=== PATIENT | male | born 1975 | race Caucasian/White ===

== ENCOUNTER 2018-05-11 22:38 | Emergency (ER) | payer OTHER ==
[~2018-05-11] VITALS: Ht 172.7 cm; Wt 70.3 kg
[~2018-05-11 22:38] MED LIST: SERT25TA PO
[2018-05-11 23:30] VITALS: BP 155/86
[2018-05-12] MEDS ORDERED: fentaNYL PF VIAL 100 MCG/2 ML VIAL IV ONE
[2018-05-12] MEDS ORDERED: ONDANSETRON PF 4 MG/2 ML VIAL. IV ONE
[2018-05-12] MEDS ORDERED: LIDOCAINE 1% PF 30 ML VIAL. INJ ONE
[2018-05-12] MEDS ORDERED: CLINDAMYCIN 600MG PREMIX 50 ML IV ONE (00:15)
[2018-05-12] MEDS ORDERED: MORPHINE SULFATE 4 MG/ML VIAL. ONE (00:40)
[2018-05-12] MEDS ORDERED: MORPHINE SULFATE 4 MG/ML VIAL. IV ONE ×2 (01:15→01:45)
[2018-05-12] MEDS ORDERED: CLIN300C8 PO (01:39)
[2018-05-12] MEDS ORDERED: OXYC-327 PO (01:39)
--- NOTE | 2018-05-12 06:22 | PHYS DOC ---
Past Medical History Past Medical History: Abscess, MRSA Additional Past Medical Histor: ASTHMA; substance abuse Past Surgical History: No Surgical History Alcohol Use: Occasionally Drug Use: Benzodiazepine Adult General Chief Complaint Chief Complaint: ABDOMINAL PAIN HPI HPI Patient is a 42 year old male who presents with abdominal abscess. The patient states he has a prior history of abscesses which have required incision and drainage. Today, he presents to the ER with swelling and pain about the mid abdomen just left of the umbilicus. He has had symptoms over the last 2 days. No fevers or chills. He primarily complains of pain.. Review of Systems Review of Systems Constitutional: Denies fever Eyes: Denies change in visual acuity HENT: Denies nasal congestion Respiratory: Denies cough Cardiovascular: No additional information not addressed in HPI GI: Denies abdominal pain Musculoskeletal: Denies back pain Integument: Denies rash Neurologic: Denies headache Endocrine: Denies polyuria All other systems were reviewed and found to be within normal limits, except as documented in this note. Current Medications Current Medications Current Medications Medications (Trade) Dose Ordered Sig/Abdiaizz Start Time Stop Time Status Last Admin Dose Admin Clindamycin Phosphate 50 ml @ 100 mls/hr 1X ONCE 05/12/18 00:15 05/12/18 00:44 DC 05/12/18 00:15 100 MLS/HR Fentanyl Citrate (Fentanyl 2ml Vial) 75 mcg 1X ONCE 05/12/18 00:00 05/12/18 00:01 DC 05/12/18 00:27 75 MCG Lidocaine HCl (Xylocaine 1% Pf 30ml Vial) 30 ml 1X ONCE 05/12/18 00:00 05/12/18 00:01 DC 05/12/18 00:26 30 ML Morphine Sulfate (Morphine Sulfate) 4 mg 1X ONCE 05/12/18 01:45 05/12/18 01:46 DC Ondansetron HCl (Zofran) 4 mg 1X ONCE 05/12/18 00:00 05/12/18 00:01 DC 05/12/18 00:27 4 MG Allergies Allergies Allergies Coded Allergies Type Severity Reaction Last Updated Verified No Known Drug Allergies 08/19/14 No Physical Exam Physical Exam Constitutional: Well developed, well nourished, no acute distress, non-toxic appearance HENT: Normocephalic, atraumatic Eyes: PERRLA, EOMI, conjunctiva normal Neck: Normal range of motion, no tenderness Cardiovascular:Heart rate regular rhythm, no murmur Lungs & Thorax: Bilateral breath sounds clear to auscultation Abdomen: Just left and lateral to the umbilicus is an area approximately 4 x 5 cm of induration and fluctuance with some overlying cellulitis. Patient also has an umbilical hernia which is protruding but easily reduces without difficulty and is not painful. Skin: Warm, dry, no erythema, no rash Neurologic: Alert and oriented X 3 Psychologic: Affect normal Current Patient Data Vital Signs Vital Signs Date Time Temp Pulse Resp B/P (MAP) Pulse Ox O2 Delivery O2 Flow Rate FiO2 05/11/18 23:30 98.4 77 18 155/86 (109) 99 Room Air 98.4 EKG EKG [] Radiology/Procedures Radiology/Procedures [] Course & Med Decision Making Course & Med Decision Making Pertinent Labs and Imaging studies reviewed. (See chart for details) Patient was evaluated for an abscess over the abdominal wall. Bedside ultrasound was completed and revealing for 2.5 x 1.5 cm abscess that was about 1.5-2 cm deep to the skin. Incision and drainage was performed as documented below. The patient tolerated well. He was given a dose of IV clindamycin in the ER and was discharged home on the same. Patient was instructed to return to the ER in 48 hours to have the wound recheck and packing removed and replaced. He was provided a prescription for [place] for pain. Opiate precautions were discussed and the patient verbalizes understanding. He is not opiate rito. Patient is accompanied by his this evening who is driving him home. Procedure note: Incision and drainage of abscess over anterior abdominal wall. The area was prepped and cleaned with iodine. A 1.5-2 cm incision was made to the skin using a #10 blade scalpel. Blunt dissection was used with iris scissors until pocket of purulent fluid was accessed. The wound was marsupialized. There was copious amount of purulent material returned. The wound was then irrigated with 500 mils of normal saline. The wound was packed with 1 inch plain packing gauze. A dressing was then placed with 4 x 4's. Dragon Disclaimer Dragon Disclaimer This electronic medical record was generated, in whole or in part, using a voice recognition dictation system. Departure Departure Impression: Primary Impression: Abscess, abdomen Disposition: HOME, SELF-CARE Condition: GOOD Patient Instructions: Abscess, Care After Scripts Oxycodone/Apap 7.5-325 (PERCOCET 7.5-325 MG TABLET) 1 Each Tablet 1-2 TAB PO TID PRN for PAIN, #30 TAB Prov: KIAN SIMPSON DO 05/12/18 Clindamycin Hcl (CLINDAMYCIN HCL) 300 Mg Capsule 300 MG PO QID, #40 CAP Prov: KIAN SIMPSON DO 05/12/18 KIAN SIMPSON DO May 12, 2018 06:22
== END 2018-05-12 02:07 | disposition home or self-care (01) ==
LOC: ER 22:38
DX: L02.211 Cutaneous abscess of abdominal wall (principal); J45.909 Unspecified asthma, uncomplicated; Z86.14 Personal history of Methicillin resistant Staphylococcus aureus infection
CPT/HCPCS: 10060; 87071; 87075; 96365; 96375; 99285; J2270; J2405; J3010; J3490

== ENCOUNTER 2018-05-14 00:42 | Emergency (ER) | payer OTHER ==
[~2018-05-14] VITALS: Ht 182.9 cm; Wt 79.4 kg
[~2018-05-14 00:42] MED LIST changes: +CLIN300C8 PO; +OXYC-327 PO
[2018-05-14 00:55] VITALS: BP 150/90
[2018-05-14] MEDS ORDERED: MUPI15CR TP (01:39)
--- NOTE | 2018-05-14 01:39 | PHYS DOC ---
Past Medical History Past Medical History: Abscess, MRSA Additional Past Medical Histor: ASTHMA; substance abuse Past Surgical History: No Surgical History Smoking: Less than 1pk/day Alcohol Use: Occasionally Drug Use: Benzodiazepine Adult General Chief Complaint Chief Complaint: WOUND CHECK HPI HPI Patient is a 42 year old male who presents for evaluation of his wound. 2 days ago he had an abdominal abscess incision and drainage. The wound was packed. Patient states he was changing his dressing when he unintentionally pulled out the packing, which was stuck to the gauze and pus and blood came out. Patient states was going to come in the morning to remove the packing anyway. He notes that he has a constant throbbing pain in the area since pulling out the packing and rates his pain as an 8-9/10. He denies any significant drainage from the wound. Review of Systems Review of Systems Constitutional: Denies fever or chills Eyes: Denies change in visual acuity, redness, or eye pain HENT: Denies nasal congestion or sore throat Respiratory: Denies cough or shortness of breath Cardiovascular: Denies chest pain or heart palpitations GI: Notes abdominal abscess pain; Denies nausea, vomiting, diarrhea, constipation : Denies dysuria or hematuria Musculoskeletal: Denies back pain or joint pain Integument: Denies rash or skin lesions Neurologic: Denies headache, focal weakness or sensory changes Complete systems were reviewed and found to be within normal limits, except as documented in this note. Family History Family History Noncontributory Current Medications Current Medications Current Medications Medications (Trade) Dose Ordered Sig/Abdiaziz Start Time Stop Time Status Last Admin Dose Admin Mupirocin (Bactroban) 1 yandy 1X ONCE 05/14/18 01:45 05/14/18 01:46 DC Oxycodone/ Acetaminophen (Percocet 5/325) 1 tab 1X ONCE 05/14/18 01:45 05/14/18 01:46 DC Gabapentin Allergies Allergies Allergies Coded Allergies Type Severity Reaction Last Updated Verified No Known Drug Allergies 08/19/14 No Physical Exam Physical Exam Constitutional: Well developed, well nourished, no acute distress, non-toxic appearance HENT: Normocephalic, atraumatic, oropharynx moist Eyes: Conjunctiva normal, no discharge Neck: Normal range of motion, no tenderness, supple Cardiovascular: Heart rate regular rhythm, no murmur Lungs & Thorax: Bilateral breath sounds clear to auscultation Abdomen: Soft, open linear abdominal wound about 6cm, healing well Skin: Warm, dry, no erythema, no rash Back: No tenderness, no CVA tenderness Extremities: No tenderness, ROM intact, no edema Neurologic: Alert and oriented X 3, normal motor function, normal sensory function, no focal deficits noted Psychologic: Affect normal, judgement normal, mood normal Current Patient Data Vital Signs Vital Signs Date Time Temp Pulse Resp B/P (MAP) Pulse Ox O2 Delivery O2 Flow Rate FiO2 05/14/18 00:55 98.1 88 20 150/90 (110) 97 Room Air 98.1 EKG EKG [] Radiology/Procedures Radiology/Procedures [] Course & Med Decision Making Course & Med Decision Making Patient is a 42 year old male who presents for evaluation of his wound. He states he unintentionally took the packing out of the wound earlier today. The packing was supposed to come out tomorrow. The wound appears to be healing well. Wound care was administered. Patient was given a one-time dose of oxycodone/APAP 5/325. Patient was provided with a prescription for mupirocin, as well as a Ventolin inhaler to his asthma symptoms. Patient stable for discharge with outpatient follow-up with PCP. Discussed findings and plan with patient and family, who acknowledge understanding and agreement. Dragon Disclaimer Dragon Disclaimer This electronic medical record was generated, in whole or in part, using a voice recognition dictation system. Departure Departure Impression: Primary Impression: Wound check, abscess Disposition: 01 HOME, SELF-CARE Condition: STABLE Referrals: ANN RIBEIRO MD (PCP) Patient Instructions: Wound Care, [id number] Scripts Albuterol Sulfate (VENTOLIN HFA INHALER) 18 Gm Hfa.aer.ad 2 PUFF INH Q4HRS for FOR ASTHMA, #1 INHALER 0 Refills Prov: RADHA SAWANT DO 05/14/18 Mupirocin Calcium (BACTROBAN CREAM) 15 Gm Cream..g. 1 YANDY TP TID, #1 EACH Prov: RADHA SAWANT DO 05/14/18 RADHA SAWANT DO May 14, 2018 01:39
[2018-05-14] MEDS ORDERED: oxyCODONE/APAP 5/325 1 TAB TABLET PO ONE (01:45)
[2018-05-14] MEDS ORDERED: MUPIROCIN 2 % TOPICAL CREAM 15GM TUBE. TP ONE (01:45)
[2018-05-14] MEDS ORDERED: VENTOLIN HFA18 GM INH (01:59)
== END 2018-05-14 02:06 | disposition home or self-care (01) ==
LOC: ER 00:42
DX: Z48.00 Encounter for change or removal of nonsurgical wound dressing (principal); R10.9 Unspecified abdominal pain; J45.909 Unspecified asthma, uncomplicated; F17.200 Nicotine dependence, unspecified, uncomplicated
CPT/HCPCS: 99283

== ENCOUNTER 2018-10-12 08:43 | Inpatient (IN) | payer OTHER ==
[~2018-10-12] VITALS: Ht 182.9 cm; Wt 83.6 kg
[~2018-10-12 08:43] MED LIST changes: +MUPI15CR TP; -OXYC-327 PO; +OXYC1TAB19 PO; +VENTOLIN HFA18 GM INH
[2018-10-12] MEDS ORDERED: HALOPERIDOL LACTATE 5 MG/ML VIAL. IM ONE (09:00)
--- NOTE | 2018-10-12 09:28 | PHYS DOC ---
Past Medical History Past Medical History: Abscess, MRSA Additional Past Medical Histor: ASTHMA; substance abuse Past Surgical History: No Surgical History Alcohol Use: Occasionally Drug Use: Benzodiazepine Adult General Chief Complaint Chief Complaint: ALTERED MENTAL STATUS HPI HPI Patient is a 43 year old male brought in by ambulance with altered mental status apparently he has a long history of methamphetamine use he said his last use was 3 days ago and "it is killing me from the inside". Apparently he was tweaking outside somebody's house and as such 911 was called blood sugar was within normal limits according to the paramedics Review of Systems Review of Systems Otherwise negative except as noted in history of present illness patient denies chest pain or shortness of breath he is noting a rash. Current Medications Current Medications Current Medications Medications (Trade) Dose Ordered Sig/Abdiaziz Start Time Stop Time Status Last Admin Dose Admin Haloperidol Lactate (Haldol Inj) 5 mg 1X ONCE 10/12/18 09:00 10/12/18 09:01 DC 10/12/18 10:35 5 MG Lorazepam (Ativan) 2 mg 1X ONCE 10/12/18 10:15 10/12/18 10:16 DC 10/12/18 10:35 2 MG Olanzapine (ZyPREXA ZYDIS) 10 mg 1X ONCE 10/12/18 09:45 10/12/18 09:46 DC 10/12/18 10:36 10 MG Sodium Chloride 1,000 ml @ 1,000 mls/hr 1X ONCE 10/12/18 15:00 10/12/18 15:59 DC 10/12/18 15:00 1,000 MLS/HR Allergies Allergies Allergies Coded Allergies Type Severity Reaction Last Updated Verified No Known Drug Allergies 08/19/14 No Physical Exam Physical Exam Constitutional: Well developed,agitated diaphoretic HENT: Normocephalic, atraumatic, bilateral external ears normal, oropharynx DRY PT IS GRINDING TEETHt, no oral exudates, nose normal. [] Eyes: Dilated pupils, conjunctiva normal, no discharge. [] Neck: Normal range of motion, no tenderness, supple, no stridor. [] Cardiovascular: Tachycardia noted. Lungs & Thorax: Bilateral breath sounds clear to auscultation [] Abdomen: Bowel sounds normal, soft, no tenderness, no masses, no pulsatile masses. [] Skin: There is a rash noted on the body some scattered areas that look like healed skin popping lesions as well as scattered excoriations Extremities: No tenderness, no cyanosis, no clubbing, ROM intact, no edema. [] Neurologic: Alert and oriented X 3, normal motor function, normal sensory function, no focal deficits noted. Psychologic: Patient appears very agitated psychomotor agitation he is pacing around the room he is speaking very fast with pressured speech he is redirectable however he is oriented 3 he even knows that it is 9 10 in the morning exactly Current Patient Data Vital Signs Vital Signs Date Time Temp Pulse Resp B/P (MAP) Pulse Ox O2 Delivery O2 Flow Rate FiO2 10/12/18 14:15 99 20 97 10/12/18 09:47 99.3 109/86 (94) Room Air 99.3 Lab Values Laboratory Tests Test 10/12/18 14:00 Urine Collection Type Unknown Urine Color Yellow Urine Clarity Clear Urine pH 5.0 Urine Specific [place] 1.015 Urine Protein Negative mg/dL (NEG-TRACE) Urine Glucose (UA) Negative mg/dL (NEG) Urine Ketones (Stick) 15 mg/dL (NEG) Urine Blood Negative (NEG) Urine Nitrite Negative (NEG) Urine Bilirubin Negative (NEG) Urine Urobilinogen Dipstick 0.2 mg/dL (0.2 mg/dL) Urine Leukocyte Esterase Negative (NEG) Urine RBC 0 /HPF (0-2) Urine WBC Occ /HPF (0-4) Urine Squamous Epithelial Cells None /LPF Urine Bacteria 0 /HPF (0-FEW) Urine Mucus Mod /LPF Urine Opiates Screen Neg (NEG) Urine Methadone Screen Neg (NEG) Urine Barbiturates Neg (NEG) Urine Phencyclidine Screen Neg (NEG) Urine Amphetamine/Methamphetamine Pos (NEG) Urine Benzodiazepines Screen Neg (NEG) Urine Cocaine Screen Pos (NEG) Urine Cannabinoids Screen Neg (NEG) Urine Ethyl Alcohol Neg (NEG) EKG EKG [] Radiology/Procedures Radiology/Procedures [] Course & Med Decision Making Course & Med Decision Making Critical care time was 40 minutes exclusive of procedures.Pertinent Labs and Imaging studies reviewed. (See chart for details) for mgmt of acute altered mental sttus from drug induced agitation ativan haldol ativan zydis required brief secuirty hold to get IM medication but did not require full restraints he was mostly verbally redirectable. reassessment 1005 am, still psychomotor agitation. Reassessment 12 PM patient is sleeping reassessment 1 PM patient gets up to the bathroom with significant assistance from staff. Reassessment at 3 PM patient is still really resistant to waking up and following commands he still has psychomotor agitation with minimal tactile stimulation given the fact that he is very slow to clear his mental status unfortunately this patient does warrant admission for hydration will do some lab work in the emergency room L speak with Dr. anastasiia porter hospitalist admit. NOTED RHABDO, PT IS HYDRATED IN THE EMERGENCY ROOM. CREATININE NORMAL. [] Dragon Disclaimer Dragon Disclaimer This electronic medical record was generated, in whole or in part, using a voice recognition dictation system. Departure Departure Impression: Primary Impression: Substance abuse Additional Impression: Elevated CK Disposition: ADMITTED INPATIENT Admitting Physician: Other Condition: STABLE Referrals: ANN RIBEIRO MD (PCP) Patient Instructions: Drug Abuse, FAQs Problem Qualifiers CONI BALDWIN MD Oct 12, 2018 09:28
[2018-10-12] MEDS ORDERED: IV NORMAL SALINE 1000ML BAG 1,000 ML IV ONE ×2 (15:00→17:15)
[2018-10-12 15:24] LABS: BASO # 0.2 x10^3/uL (0.0-0.2); BASO % 1 % (0-3); EOS # 0.1 x10^3/uL (0.0-0.7); EOS % 1 % (0-3); HEMATOCRIT 35.8 % (39.0-53.0); HEMOGLOBIN 12.4 g/dL (13.0-17.5); LYMPH % 17 % (24-48); MEAN CORPUSCULAR HEMOGLOBIN 31 pg (25-35); MEAN CORPUSCULAR HGB CONC 35 g/dL (31-37); MEAN CORPUSCULAR VOLUME 90 fL (79-100); MONO # 1.3 x10^3/uL (0.0-1.1); MONO % 11 % (0-9); NEUT # 8.2 x10^3uL (1.8-7.7); NEUT % 70 % (31-73); PLATELET COUNT 371 x10^3/uL (140-400); RED CELL DISTRIBUTION WIDTH 13.7 % (11.5-14.5); WHITE BLOOD COUNT 11.8 x10^3/uL (4.0-11.0)
[2018-10-12 15:26] LABS: BILIRUBIN,URINE NEGATIVE (NEG); CLARITY,URINE CLEAR; COLOR,URINE YELLOW; NITRITE,URINE NEGATIVE (NEG); PROTEIN,URINE NEGATIVE (NEG-TRACE); UROBILINOGEN,URINE 0.2 mg/dL (0.2 mg/dL)
[2018-10-12 15:33] LABS: BARBITURATES NEG (NEG); BENZODIAZEPINES NEG (NEG); CANNABINOIDS NEG (NEG); COCAINE POS (NEG); METHADONE NEG (NEG); OPIATES NEG (NEG); PHENCYCLIDINE NEG (NEG)
[2018-10-12 15:34] LABS: AMPHETAMINE/METHAMPHETAMINE POS (NEG)
[2018-10-12 15:35] LABS: CREATININE 1.2 mg/dL (0.7-1.3); GFR 66.4
[2018-10-12 15:40] LABS: BACTERIA,URINE 0 /HPF (0-FEW); RBC,URINE 0 /HPF (0-2); WBC,URINE OCC /HPF (0-4)
[2018-10-12 15:51] LABS: ALBUMIN 3.9 g/dL (3.4-5.0); ALBUMIN/GLOBULIN RATIO 1.1 (1.0-1.7); MAGNESIUM 2.1 mg/dL (1.8-2.4); TOTAL PROTEIN 7.3 g/dL (6.4-8.2)
[2018-10-12] MEDS ORDERED: IV RINGERS,LACTATED 1000ML 1,000 ML IV SCH (16:05)
[2018-10-12] MEDS ORDERED: IV NORMAL SALINE 1000ML BAG 1,000 ML IV SCH (16:08)
[2018-10-12] MEDS ORDERED: IBUPROFEN 400 MG TABLET. PO PRN (16:15)
[2018-10-12] MEDS ORDERED: ONDANSETRON PF 4 MG/2 ML VIAL. IV PRN (16:15)
[2018-10-12] MEDS ORDERED: ELECTROLYTE (NON-ICU) PROTOCOL MC PRN (16:15)
[2018-10-12] MEDS ORDERED: ACETAMINOPHEN 325 MG TABLET. PO PRN (16:15)
[2018-10-12] MEDS ORDERED: LACTULOSE 20 GM/30 ML SOLUTION. PO PRN (16:15)
[2018-10-12] MEDS ORDERED: PROCHLORPERAZINE 10 MG/2 ML VIAL. IV PRN (16:15)
[2018-10-12] MEDS ORDERED: ZOLPIDEM 5 MG TABLET. PO PRN (16:15)
[2018-10-12] MEDS ORDERED: oxyCODONE/APAP 7.5/325 1 TAB TABLET PO PRN (16:15)
[2018-10-12] MEDS ORDERED: CLINDAMYCIN HCL 300 MG PO SCH (17:00)
--- NOTE | 2018-10-12 17:17 | PDOC1 ---
History and Physical Date of Admission Date of Admission 10/12/2018 Identification/Chief Complaint Chief Complaint brought by EMS Source Source: Chart review, Unable to obtain due to (patient sedated) History of Present Illness History of Present Illness Patient is a 43-year-old gentleman that was brought by EMS after being noticed to be experiencing withdrawal symptoms apparently. The patient at the time of my evaluation is quite sedated since he required several agents in order to calm him down. Despite all the efforts in the emergency department patient was unable to be dismissed home due to the excessive somnolence as a result of trying to stay stable ice is acute agitated state. Lungs are clear to auscultation he does not seem to be in any discomfort at the present time he just moans when addressed he's moving all extremities no signs of trauma evident. History from ER physician as follows Patient is a 43 year old male brought in by ambulance with altered mental status apparently he has a long history of methamphetamine use he said his last use was 3 days ago and "it is killing me from the inside". Apparently he was tweaking outside somebody's house and as such 911 was called blood sugar was within normal limits according to the paramedics Past Medical History Cardiovascular: No pertinent hx Past Surgical History Past Surgical History: No pertinent history Family History Family History: No Significant Current Problem List Problem List Problems Medical Problems: (1) Substance abuse Status: Acute Current Medications Current Medications Current Medications Medications (Trade) Dose Ordered Sig/Abdiaziz Start Time Stop Time Status Last Admin Dose Admin Acetaminophen (Tylenol) 650 mg PRN Q6HRS PRN 10/12/18 16:15 Albuterol Sulfate (Ventolin Neb Soln) 2.5 mg Q4HRS 10/12/18 20:00 Haloperidol Lactate (Haldol Inj) 5 mg 1X ONCE 10/12/18 09:00 10/12/18 09:01 DC 10/12/18 10:35 5 MG Ibuprofen (Motrin) 400 mg PRN Q6HRS PRN 10/12/18 16:15 Info (Non-Icu Electrolyte Protocol) 1 ea PRN DAILY PRN 10/12/18 16:15 Ketorolac Tromethamine (Toradol 30mg Vial) 30 mg PRN Q6HRS PRN 10/12/18 16:15 10/17/18 16:14 Lactulose (Lactulose) 20 gm PRN Q12HR PRN 10/12/18 16:15 Lorazepam (Ativan) 2 mg 1X ONCE 10/12/18 10:15 10/12/18 10:16 DC 10/12/18 10:35 2 MG Mupirocin (Bactroban) 1 yandy TID 10/12/18 21:00 Non-Formulary Medication (Albuterol Sulfate (Ventolin Hfa Inhaler)) 2 puff Q4HRS 10/12/18 20:00 UNV Non-Formulary Medication (Clindamycin Hcl ) 300 mg QID 10/12/18 17:00 UNV Olanzapine (ZyPREXA ZYDIS) 10 mg 1X ONCE 10/12/18 09:45 10/12/18 09:46 DC 10/12/18 10:36 10 MG Ondansetron HCl (Zofran) 4 mg PRN Q6HRS PRN 10/12/18 16:15 Oxycodone/ Acetaminophen (Percocet 7.5/ 325) 1 tab PRN TID PRN 10/12/18 16:15 Prochlorperazine Edisylate (Compazine) 10 mg PRN Q6HRS PRN 10/12/18 16:15 Ringer's Solution 1,000 ml @ 100 mls/hr Q10H 10/12/18 16:05 10/13/18 02:04 Senna/Docusate Sodium (Senna Plus) 1 tab BID 10/12/18 21:00 Sertraline HCl (Zoloft) 25 mg DAILY 10/13/18 09:00 Sodium Chloride 1,000 ml @ 125 mls/hr Q8H 10/12/18 16:08 10/13/18 16:07 Zolpidem Tartrate (Ambien) 5 mg PRN QHS PRN 10/12/18 16:15 Allergies Allergies Allergies Coded Allergies Type Severity Reaction Last Updated Verified No Known Drug Allergies 08/19/14 No ROS Review of System Unable to assess secondary to sedation Physical Exam Physical Exam GEN.: No apparent distress. Alert and oriented. HEENT: Head is normocephalic, atraumatic NECK: Supple. LUNGS: Clear to auscultation. HEART: RRR, S1, S2 present. Peripheral pulses intact ABDOMEN: Soft, nontender. Positive bowel sounds. EXTREMITIES: Without any cyanosis. NEUROLOGIC: Unable to assess PSYCHIATRIC: Unable to assess SKIN: No ulcerations Vitals Vitals Vital Signs Date Time Temp Pulse Resp B/P (MAP) Pulse Ox O2 Delivery O2 Flow Rate FiO2 10/12/18 14:15 99 20 97 10/12/18 09:47 99.3 109/86 (94) Room Air 99.3 Labs Labs Laboratory Tests Test 10/12/18 14:00 10/12/18 15:20 Urine Collection Type Unknown Urine Color Yellow Urine Clarity Clear Urine pH 5.0 Urine Specific [place] 1.015 Urine Protein Negative mg/dL (NEG-TRACE) Urine Glucose (UA) Negative mg/dL (NEG) Urine Ketones (Stick) 15 mg/dL (NEG) Urine Blood Negative (NEG) Urine Nitrite Negative (NEG) Urine Bilirubin Negative (NEG) Urine Urobilinogen Dipstick 0.2 mg/dL (0.2 mg/dL) Urine Leukocyte Esterase Negative (NEG) Urine RBC 0 /HPF (0-2) Urine WBC Occ /HPF (0-4) Urine Squamous Epithelial Cells None /LPF Urine Bacteria 0 /HPF (0-FEW) Urine Mucus Mod /LPF Urine Opiates Screen Neg (NEG) Urine Methadone Screen Neg (NEG) Urine Barbiturates Neg (NEG) Urine Phencyclidine Screen Neg (NEG) Urine Amphetamine/Methamphetamine Pos (NEG) Urine Benzodiazepines Screen Neg (NEG) Urine Cocaine Screen Pos (NEG) Urine Cannabinoids Screen Neg (NEG) Urine Ethyl Alcohol Neg (NEG) White Blood Count 11.8 x10^3/uL (4.0-11.0) Red Blood Count 4.00 x10^6/uL (4.30-5.70) Hemoglobin 12.4 g/dL (13.0-17.5) Hematocrit 35.8 % (39.0-53.0) Mean Corpuscular Volume 90 fL (79-100) Mean Corpuscular Hemoglobin 31 pg (25-35) Mean Corpuscular Hemoglobin Concent 35 g/dL (31-37) Red Cell Distribution Width 13.7 % (11.5-14.5) Platelet Count 371 x10^3/uL (140-400) Neutrophils (%) (Auto) 70 % (31-73) Lymphocytes (%) (Auto) 17 % (24-48) Monocytes (%) (Auto) 11 % (0-9) Eosinophils (%) (Auto) 1 % (0-3) Basophils (%) (Auto) 1 % (0-3) Neutrophils # (Auto) 8.2 x10^3uL (1.8-7.7) Lymphocytes # (Auto) 2.0 x10^3/uL (1.0-4.8) Monocytes # (Auto) 1.3 x10^3/uL (0.0-1.1) Eosinophils # (Auto) 0.1 x10^3/uL (0.0-0.7) Basophils # (Auto) 0.2 x10^3/uL (0.0-0.2) Sodium Level 139 mmol/L (136-145) Potassium Level 4.0 mmol/L (3.5-5.1) Chloride Level 101 mmol/L (98-107) Carbon Dioxide Level 21 mmol/L (21-32) Anion Gap 17 (6-14) Blood Urea Nitrogen 31 mg/dL (8-26) Creatinine 1.2 mg/dL (0.7-1.3) Estimated GFR (Cockcroft-Gault) 66.4 BUN/Creatinine Ratio 26 (6-20) Glucose Level 93 mg/dL (70-99) Calcium Level 9.0 mg/dL (8.5-10.1) Magnesium Level 2.1 mg/dL (1.8-2.4) Total Bilirubin 1.0 mg/dL (0.2-1.0) Aspartate Amino Transf (AST/SGOT) 252 U/L (15-37) Alanine Aminotransferase (ALT/SGPT) 170 U/L (16-63) Alkaline Phosphatase 61 U/L (46-116) Creatine Kinase 87403 U/L (39-308) Total Protein 7.3 g/dL (6.4-8.2) Albumin 3.9 g/dL (3.4-5.0) Albumin/Globulin Ratio 1.1 (1.0-1.7) Lipase 43 U/L (73-393) Ethyl Alcohol Level < 10 mg/dL (0-10) Laboratory Tests Test 10/12/18 14:00 10/12/18 15:20 Urine Collection Type Unknown Urine Color Yellow Urine Clarity Clear Urine pH 5.0 Urine Specific [place] 1.015 Urine Protein Negative mg/dL (NEG-TRACE) Urine Glucose (UA) Negative mg/dL (NEG) Urine Ketones (Stick) 15 mg/dL (NEG) Urine Blood Negative (NEG) Urine Nitrite Negative (NEG) Urine Bilirubin Negative (NEG) Urine Urobilinogen Dipstick 0.2 mg/dL (0.2 mg/dL) Urine Leukocyte Esterase Negative (NEG) Urine RBC 0 /HPF (0-2) Urine WBC Occ /HPF (0-4) Urine Squamous Epithelial Cells None /LPF Urine Bacteria 0 /HPF (0-FEW) Urine Mucus Mod /LPF Urine Opiates Screen Neg (NEG) Urine Methadone Screen Neg (NEG) Urine Barbiturates Neg (NEG) Urine Phencyclidine Screen Neg (NEG) Urine Amphetamine/Methamphetamine Pos (NEG) Urine Benzodiazepines Screen Neg (NEG) Urine Cocaine Screen Pos (NEG) Urine Cannabinoids Screen Neg (NEG) Urine Ethyl Alcohol Neg (NEG) White Blood Count 11.8 x10^3/uL (4.0-11.0) Red Blood Count 4.00 x10^6/uL (4.30-5.70) Hemoglobin 12.4 g/dL (13.0-17.5) Hematocrit 35.8 % (39.0-53.0) Mean Corpuscular Volume 90 fL (79-100) Mean Corpuscular Hemoglobin 31 pg (25-35) Mean Corpuscular Hemoglobin Concent 35 g/dL (31-37) Red Cell Distribution Width 13.7 % (11.5-14.5) Platelet Count 371 x10^3/uL (140-400) Neutrophils (%) (Auto) 70 % (31-73) Lymphocytes (%) (Auto) 17 % (24-48) Monocytes (%) (Auto) 11 % (0-9) Eosinophils (%) (Auto) 1 % (0-3) Basophils (%) (Auto) 1 % (0-3) Neutrophils # (Auto) 8.2 x10^3uL (1.8-7.7) Lymphocytes # (Auto) 2.0 x10^3/uL (1.0-4.8) Monocytes # (Auto) 1.3 x10^3/uL (0.0-1.1) Eosinophils # (Auto) 0.1 x10^3/uL (0.0-0.7) Basophils # (Auto) 0.2 x10^3/uL (0.0-0.2) Sodium Level 139 mmol/L (136-145) Potassium Level 4.0 mmol/L (3.5-5.1) Chloride Level 101 mmol/L (98-107) Carbon Dioxide Level 21 mmol/L (21-32) Anion Gap 17 (6-14) Blood Urea Nitrogen 31 mg/dL (8-26) Creatinine 1.2 mg/dL (0.7-1.3) Estimated GFR (Cockcroft-Gault) 66.4 BUN/Creatinine Ratio 26 (6-20) Glucose Level 93 mg/dL (70-99) Calcium Level 9.0 mg/dL (8.5-10.1) Magnesium Level 2.1 mg/dL (1.8-2.4) Total Bilirubin 1.0 mg/dL (0.2-1.0) Aspartate Amino Transf (AST/SGOT) 252 U/L (15-37) Alanine Aminotransferase (ALT/SGPT) 170 U/L (16-63) Alkaline Phosphatase 61 U/L (46-116) Creatine Kinase 26932 U/L (39-308) Total Protein 7.3 g/dL (6.4-8.2) Albumin 3.9 g/dL (3.4-5.0) Albumin/Globulin Ratio 1.1 (1.0-1.7) Lipase 43 U/L (73-393) Ethyl Alcohol Level < 10 mg/dL (0-10) VTE Prophylaxis Ordered VTE Prophylaxis Devices: No VTE Pharmacological Prophylaxi: No Assessment/Plan Assessment/Plan Polysubstance abuse Elevated CPK with Rhabdomyolisis as a consequence of multiple drug abuse Transaminitis Normocytic anemia Severe dehydrations Plan: start bicarbonate drip labs in am reassess in the am follow urinary output Further recommendations based on clinical course DVT prophylaxis: may use SCD if patient allows he is low risk for DVT ambulate with assistance. PARTHA MAYA MD Oct 12, 2018 17:17
--- NOTE | 2018-10-12 19:30 | NUR ---
NURSING NOTE Report given to this RN by Karen HEALY. Pt is very drowsy, doesn't arouse to talk except only one word answers. Unable to complete admission history at this time. Will monitor.
[2018-10-12] MEDS ORDERED: ALBUTEROL SULFATE 2.5 MG/3 ML NEBU. NEB SCH (20:00)
[2018-10-12] MEDS ORDERED: ALBUTEROL SULFATE 2.5 MG/3 ML NEBU. NEB PRN (20:00)
[2018-10-12] MEDS ORDERED: NON FORMULARY ITEM (Albuterol Sulfate (Ventolin Hfa Inhaler) 2 PUFF) INH SCH (20:00)
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
[2018-10-12] MEDS: SODIUM BICARBONATE VIAL 150 MEQ in IV DEXTROSE 5% 1,000 ML IV SCH ×2 (20:56→23:15)
[2018-10-12] MEDS: KETOROLAC 30 MG/ML VIAL. IV PRN (20:57)
[2018-10-12 20:59] VITALS: BP 113/76
[2018-10-12] MEDS: SENNOSIDES/DOCUSATE 8.6/50MG TABLET. PO SCH (21:00)
[2018-10-12] MEDS: MUPIROCIN 2 % TOPICAL CREAM 15GM TUBE. TP SCH (21:00)
--- NOTE | 2018-10-12 22:24 | NUR ---
NURSING NOTE Attempted to ask pt some of the admission questions, but he is drowsy at times, restless in the bed at times and unable to concentrate long enough to give answers when he is alert.
[2018-10-13 03:55] VITALS: BP 110/71
[2018-10-13] MEDS: SODIUM BICARBONATE VIAL 150 MEQ in IV DEXTROSE 5% 1,000 ML IV SCH ×3 (06:19→16:30)
[2018-10-13 07:00] VITALS: BP 105/67
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
[2018-10-13] MEDS: SENNOSIDES/DOCUSATE 8.6/50MG TABLET. PO SCH ×2 (09:00→21:00)
[2018-10-13] MEDS: MUPIROCIN 2 % TOPICAL CREAM 15GM TUBE. TP SCH ×3 (09:00→21:00)
[2018-10-13] MEDS: IV NORMAL SALINE 1000ML BAG 1,000 ML IV SCH ×2 (09:14→20:30)
[2018-10-13] MEDS: SERTRALINE 25 MG TABLET. PO SCH (09:14)
[2018-10-13 10:57] LABS: BASO % 1 % (0-3); EOS # 0.2 x10^3/uL (0.0-0.7); EOS % 4 % (0-3); HEMATOCRIT 35.8 % (39.0-53.0); HEMOGLOBIN 12.4 g/dL (13.0-17.5); LYMPH % 18 % (24-48); MEAN CORPUSCULAR HEMOGLOBIN 31 pg (25-35); MEAN CORPUSCULAR HGB CONC 35 g/dL (31-37); MEAN CORPUSCULAR VOLUME 90 fL (79-100); MONO # 0.5 x10^3/uL (0.0-1.1); MONO % 9 % (0-9); NEUT # 3.9 x10^3uL (1.8-7.7); NEUT % 69 % (31-73); PLATELET COUNT 360 x10^3/uL (140-400); WHITE BLOOD COUNT 5.7 x10^3/uL (4.0-11.0)
[2018-10-13 11:00] VITALS: BP 125/83
[2018-10-13 11:14] LABS: ALBUMIN/GLOBULIN RATIO 0.9 (1.0-1.7); CALCIUM 8.4 mg/dL (8.5-10.1); CREATININE 0.8 mg/dL (0.7-1.3); POTASSIUM 3.4 mmol/L (3.5-5.1); TOTAL BILIRUBIN 0.5 mg/dL (0.2-1.0); TOTAL PROTEIN 6.5 g/dL (6.4-8.2)
[2018-10-13 15:00] VITALS: BP 110/77
[2018-10-13] MEDS ORDERED: POTASSIUM CHLORIDE 20 MEQ TABLET.ER. PO ONE (15:00)
[2018-10-13] MEDS: KETOROLAC 30 MG/ML VIAL. IV PRN (15:05)
[2018-10-13 19:00] VITALS: BP 113/70
[2018-10-13 23:00] VITALS: BP 115/78
[2018-10-14 03:00] VITALS: BP 102/89
[2018-10-14] MEDS: IV NORMAL SALINE 1000ML BAG 1,000 ML IV SCH ×2 (06:24→14:59)
[2018-10-14 07:05] VITALS: BP 125/82
--- NOTE | 2018-10-14 08:18 | PDOC ---
PROGRESS NOTES Chief Complaint Chief Complaint Polysubstance abuse Elevated CPK with Rhabdomyolisis as a consequence of multiple drug abuse Transaminitis Normocytic anemia Severe dehydrations Plan: start bicarbonate drip labs in am reassess in the am follow urinary output Further recommendations based on clinical course DVT prophylaxis: may use SCD if patient allows he is low risk for DVT ambulate with assistance. History of Present Illness History of Present Illness 43-year-old gentleman PMHx polysubstance abuse just released from rehab for IV heroin and IV methamphetamine abuse on 10/05/18 who immediately started using again and went a "3-day patterson" was brought by EMS after being found in the [place] outside someone's house tweaking, apparently. Found in severe rhabdo, CK > 10K with transaminitis and MINERVA, admitted for further care 10/13: States he feels like he was hit by a bus, asking for codeine, but still telling me he used IV heroin and just got out of rehab. I have advised against this Feeling ok this morning, still very weak and sore. Labs still pending, CK and CMP. He wishes to d/w PAT team prior to d/c as he is scared he will relapse to IV heroin and meth if discharged home as rehab discharged him directly to his drug dealer's house. Plan: IV toradol for pain Increase saline infusion. Replace K. If labs improved can shut off IVF Ok to d/c 1-1 for now, he is less agitated. PAT team for drug rehab, likely d/c tomorrow Vitals Vitals Vital Signs Date Time Temp Pulse Resp B/P (MAP) Pulse Ox O2 Delivery O2 Flow Rate FiO2 10/14/18 08:00 Room Air 10/14/18 07:05 98.4 80 16 125/82 (96) 98 98.4 Physical Exam General: Alert, Oriented X3, Cooperative, No acute distress Heart: Regular rate, Normal S1, Normal S2 Lungs: Wheezing Abdomen: Normal bowel sounds, Soft, No tenderness, No hepatosplenomegaly Extremities: No clubbing, No cyanosis, No edema, Normal pulses Skin: Other (scratches on entire body) Labs LABS Laboratory Tests Test 10/13/18 10:38 White Blood Count 5.7 x10^3/uL (4.0-11.0) Red Blood Count 4.00 x10^6/uL (4.30-5.70) Hemoglobin 12.4 g/dL (13.0-17.5) Hematocrit 35.8 % (39.0-53.0) Mean Corpuscular Volume 90 fL (79-100) Mean Corpuscular Hemoglobin 31 pg (25-35) Mean Corpuscular Hemoglobin Concent 35 g/dL (31-37) Red Cell Distribution Width 14.0 % (11.5-14.5) Platelet Count 360 x10^3/uL (140-400) Neutrophils (%) (Auto) 69 % (31-73) Lymphocytes (%) (Auto) 18 % (24-48) Monocytes (%) (Auto) 9 % (0-9) Eosinophils (%) (Auto) 4 % (0-3) Basophils (%) (Auto) 1 % (0-3) Neutrophils # (Auto) 3.9 x10^3uL (1.8-7.7) Lymphocytes # (Auto) 1.0 x10^3/uL (1.0-4.8) Monocytes # (Auto) 0.5 x10^3/uL (0.0-1.1) Eosinophils # (Auto) 0.2 x10^3/uL (0.0-0.7) Basophils # (Auto) 0.0 x10^3/uL (0.0-0.2) Sodium Level 143 mmol/L (136-145) Potassium Level 3.4 mmol/L (3.5-5.1) Chloride Level 104 mmol/L (98-107) Carbon Dioxide Level 31 mmol/L (21-32) Anion Gap 8 (6-14) Blood Urea Nitrogen 20 mg/dL (8-26) Creatinine 0.8 mg/dL (0.7-1.3) Estimated GFR (Cockcroft-Gault) 106.0 BUN/Creatinine Ratio 25 (6-20) Glucose Level 106 mg/dL (70-99) Calcium Level 8.4 mg/dL (8.5-10.1) Total Bilirubin 0.5 mg/dL (0.2-1.0) Aspartate Amino Transf (AST/SGOT) 143 U/L (15-37) Alanine Aminotransferase (ALT/SGPT) 133 U/L (16-63) Alkaline Phosphatase 54 U/L (46-116) Creatine Kinase 3586 U/L (39-308) Total Protein 6.5 g/dL (6.4-8.2) Albumin 3.0 g/dL (3.4-5.0) Albumin/Globulin Ratio 0.9 (1.0-1.7) Assessment and Plan Assessmemt and Plan Problems Medical Problems: (1) Elevated CK Status: Acute (2) Substance abuse Status: Acute Comment Review of Relevant I have reviewed the following items joe (where applicable) has been applied. Labs Laboratory Tests Test 10/12/18 14:00 10/12/18 15:20 10/13/18 10:38 Urine Collection Type Unknown Urine Color Yellow Urine Clarity Clear Urine pH 5.0 Urine Specific Traphill 1.015 Urine Protein Negative mg/dL (NEG-TRACE) Urine Glucose (UA) Negative mg/dL (NEG) Urine Ketones (Stick) 15 mg/dL (NEG) Urine Blood Negative (NEG) Urine Nitrite Negative (NEG) Urine Bilirubin Negative (NEG) Urine Urobilinogen Dipstick 0.2 mg/dL (0.2 mg/dL) Urine Leukocyte Esterase Negative (NEG) Urine RBC 0 /HPF (0-2) Urine WBC Occ /HPF (0-4) Urine Squamous Epithelial Cells None /LPF Urine Bacteria 0 /HPF (0-FEW) Urine Mucus Mod /LPF Urine Opiates Screen Neg (NEG) Urine Methadone Screen Neg (NEG) Urine Barbiturates Neg (NEG) Urine Phencyclidine Screen Neg (NEG) Urine Amphetamine/Methamphetamine Pos (NEG) Urine Benzodiazepines Screen Neg (NEG) Urine Cocaine Screen Pos (NEG) Urine Cannabinoids Screen Neg (NEG) Urine Ethyl Alcohol Neg (NEG) White Blood Count 11.8 x10^3/uL (4.0-11.0) 5.7 x10^3/uL (4.0-11.0) Red Blood Count 4.00 x10^6/uL (4.30-5.70) 4.00 x10^6/uL (4.30-5.70) Hemoglobin 12.4 g/dL (13.0-17.5) 12.4 g/dL (13.0-17.5) Hematocrit 35.8 % (39.0-53.0) 35.8 % (39.0-53.0) Mean Corpuscular Volume 90 fL (79-100) 90 fL (79-100) Mean Corpuscular Hemoglobin 31 pg (25-35) 31 pg (25-35) Mean Corpuscular Hemoglobin Concent 35 g/dL (31-37) 35 g/dL (31-37) Red Cell Distribution Width 13.7 % (11.5-14.5) 14.0 % (11.5-14.5) Platelet Count 371 x10^3/uL (140-400) 360 x10^3/uL (140-400) Neutrophils (%) (Auto) 70 % (31-73) 69 % (31-73) Lymphocytes (%) (Auto) 17 % (24-48) 18 % (24-48) Monocytes (%) (Auto) 11 % (0-9) 9 % (0-9) Eosinophils (%) (Auto) 1 % (0-3) 4 % (0-3) Basophils (%) (Auto) 1 % (0-3) 1 % (0-3) Neutrophils # (Auto) 8.2 x10^3uL (1.8-7.7) 3.9 x10^3uL (1.8-7.7) Lymphocytes # (Auto) 2.0 x10^3/uL (1.0-4.8) 1.0 x10^3/uL (1.0-4.8) Monocytes # (Auto) 1.3 x10^3/uL (0.0-1.1) 0.5 x10^3/uL (0.0-1.1) Eosinophils # (Auto) 0.1 x10^3/uL (0.0-0.7) 0.2 x10^3/uL (0.0-0.7) Basophils # (Auto) 0.2 x10^3/uL (0.0-0.2) 0.0 x10^3/uL (0.0-0.2) Sodium Level 139 mmol/L (136-145) 143 mmol/L (136-145) Potassium Level 4.0 mmol/L (3.5-5.1) 3.4 mmol/L (3.5-5.1) Chloride Level 101 mmol/L (98-107) 104 mmol/L (98-107) Carbon Dioxide Level 21 mmol/L (21-32) 31 mmol/L (21-32) Anion Gap 17 (6-14) 8 (6-14) Blood Urea Nitrogen 31 mg/dL (8-26) 20 mg/dL (8-26) Creatinine 1.2 mg/dL (0.7-1.3) 0.8 mg/dL (0.7-1.3) Estimated GFR (Cockcroft-Gault) 66.4 106.0 BUN/Creatinine Ratio 26 (6-20) 25 (6-20) Glucose Level 93 mg/dL (70-99) 106 mg/dL (70-99) Calcium Level 9.0 mg/dL (8.5-10.1) 8.4 mg/dL (8.5-10.1) Magnesium Level 2.1 mg/dL (1.8-2.4) Total Bilirubin 1.0 mg/dL (0.2-1.0) 0.5 mg/dL (0.2-1.0) Aspartate Amino Transf (AST/SGOT) 252 U/L (15-37) 143 U/L (15-37) Alanine Aminotransferase (ALT/SGPT) 170 U/L (16-63) 133 U/L (16-63) Alkaline Phosphatase 61 U/L (46-116) 54 U/L (46-116) Creatine Kinase 74932 U/L (39-308) 3586 U/L (39-308) Total Protein 7.3 g/dL (6.4-8.2) 6.5 g/dL (6.4-8.2) Albumin 3.9 g/dL (3.4-5.0) 3.0 g/dL (3.4-5.0) Albumin/Globulin Ratio 1.1 (1.0-1.7) 0.9 (1.0-1.7) Lipase 43 U/L (73-393) Ethyl Alcohol Level < 10 mg/dL (0-10) Laboratory Tests Test 10/13/18 10:38 White Blood Count 5.7 x10^3/uL (4.0-11.0) Red Blood Count 4.00 x10^6/uL (4.30-5.70) Hemoglobin 12.4 g/dL (13.0-17.5) Hematocrit 35.8 % (39.0-53.0) Mean Corpuscular Volume 90 fL (79-100) Mean Corpuscular Hemoglobin 31 pg (25-35) Mean Corpuscular Hemoglobin Concent 35 g/dL (31-37) Red Cell Distribution Width 14.0 % (11.5-14.5) Platelet Count 360 x10^3/uL (140-400) Neutrophils (%) (Auto) 69 % (31-73) Lymphocytes (%) (Auto) 18 % (24-48) Monocytes (%) (Auto) 9 % (0-9) Eosinophils (%) (Auto) 4 % (0-3) Basophils (%) (Auto) 1 % (0-3) Neutrophils # (Auto) 3.9 x10^3uL (1.8-7.7) Lymphocytes # (Auto) 1.0 x10^3/uL (1.0-4.8) Monocytes # (Auto) 0.5 x10^3/uL (0.0-1.1) Eosinophils # (Auto) 0.2 x10^3/uL (0.0-0.7) Basophils # (Auto) 0.0 x10^3/uL (0.0-0.2) Sodium Level 143 mmol/L (136-145) Potassium Level 3.4 mmol/L (3.5-5.1) Chloride Level 104 mmol/L (98-107) Carbon Dioxide Level 31 mmol/L (21-32) Anion Gap 8 (6-14) Blood Urea Nitrogen 20 mg/dL (8-26) Creatinine 0.8 mg/dL (0.7-1.3) Estimated GFR (Cockcroft-Gault) 106.0 BUN/Creatinine Ratio 25 (6-20) Glucose Level 106 mg/dL (70-99) Calcium Level 8.4 mg/dL (8.5-10.1) Total Bilirubin 0.5 mg/dL (0.2-1.0) Aspartate Amino Transf (AST/SGOT) 143 U/L (15-37) Alanine Aminotransferase (ALT/SGPT) 133 U/L (16-63) Alkaline Phosphatase 54 U/L (46-116) Creatine Kinase 3586 U/L (39-308) Total Protein 6.5 g/dL (6.4-8.2) Albumin 3.0 g/dL (3.4-5.0) Albumin/Globulin Ratio 0.9 (1.0-1.7) Medications Current Medications Lorazepam (Ativan) 2 mg 1X ONCE IM Last administered on 10/12/18at 10:35; Start 10/12/18 at 09:00; Stop 10/12/18 at 09:01; Status DC Haloperidol Lactate (Haldol Inj) 5 mg 1X ONCE IM Last administered on at 10:35; Start 10/12/18 at 09:00; Stop 10/12/18 at 09:01; Status DC Olanzapine (ZyPREXA ZYDIS) 10 mg 1X ONCE PO Last administered on 10/12/18at 10: 36; Start 10/12/18 at 09:45; Stop 10/12/18 at 09:46; Status DC Lorazepam (Ativan) 2 mg 1X ONCE IM Last administered on 10/12/18at 10:35; Start 10/12/18 at 10:15; Stop 10/12/18 at 10:16; Status DC Sodium Chloride 1,000 ml @ 1,000 mls/hr 1X ONCE IV Last administered on at 15:00; Start 10/12/18 at 15:00; Stop 10/12/18 at 15:59; Status DC Sodium Chloride 1,000 ml @ 125 mls/hr Q8H IV ; Start 10/12/18 at 16:08; Stop at 17:19; Status DC Ringer's Solution 1,000 ml @ 100 mls/hr Q10H IV ; Start 10/12/18 at 16:05; Stop 10/12/18 at 17:19; Status DC Ondansetron HCl (Zofran) 4 mg PRN Q6HRS PRN IV NAUSEA/VOMITING; Start 10/12/18 at 16:15 Prochlorperazine Edisylate (Compazine) 10 mg PRN Q6HRS PRN IV NAUSEA/VOMITING; Start 10/12/18 at 16:15 Zolpidem Tartrate (Ambien) 5 mg PRN QHS PRN PO INSOMNIA, MAY REPEAT IN 1HR; Start 10/12/18 at 16:15 Info (Non-Icu Electrolyte Protocol) 1 ea PRN DAILY PRN MC SEE COMMENTS; Start 10/12/18 at 16:15 Ketorolac Tromethamine (Toradol 30mg Vial) 30 mg PRN Q6HRS PRN IV PAIN Last administered on 10/13/18at 15:05; Start 10/12/18 at 16:15; Stop 10/17/18 at 16:14 Acetaminophen (Tylenol) 650 mg PRN Q6HRS PRN PO Headaches, Temp > 101.5F; Start 10/12/18 at 16:15 Ibuprofen (Motrin) 400 mg PRN Q6HRS PRN PO MILD PAIN; Start 10/12/18 at 16:15 Senna/Docusate Sodium (Senna Plus) 1 tab BID PO ; Start 10/12/18 at 21:00 Lactulose (Lactulose) 20 gm PRN Q12HR PRN PO CONSTIPATION; Start 10/12/18 at 16 :15 Mupirocin (Bactroban) 1 yandy TID TP ; Start 10/12/18 at 21:00 Oxycodone/ Acetaminophen (Percocet 7.5/ 325) 1 tab PRN TID PRN PO PAIN; Start 10/12/18 at 16:15; Stop 10/13/18 at 10:44; Status DC Non-Formulary Medication (Albuterol Sulfate (Ventolin Hfa Inhaler)) 2 puff Q4HRS INH ; Start 10/12/18 at 20:00; Status UNV Non-Formulary Medication (Clindamycin Hcl ) 300 mg QID PO ; Start 10/12/18 at 17 :00; Status UNV Sertraline HCl (Zoloft) 25 mg DAILY PO Last administered on 10/13/18at 09:14; Start 10/13/18 at 09:00 Albuterol Sulfate (Ventolin Neb Soln) 2.5 mg Q4HRS NEB ; Start 10/12/18 at 20:00 ; Stop 10/12/18 at 20:00; Status DC Sodium Chloride 1,000 ml @ 1,000 mls/hr 1X ONCE IV ; Start 10/12/18 at 17:15; Stop 10/12/18 at 18:14; Status DC Sodium Bicarbonate 150 meq/Dextrose 1,150 ml @ 200 mls/hr Q5H45M IV Last administered on 10/13/18at 06:19; Start 10/12/18 at 17:30; Stop 10/13/18 at 16:35 ; Status DC Albuterol Sulfate (Ventolin Neb Soln) 2.5 mg PRN Q4HRS PRN NEB SHORTNESS OF BREATH; Start 10/12/18 at 20:00 Sodium Chloride 1,000 ml @ 100 mls/hr Q10H IV Last administered on 10/14/18at 06:24; Start 10/13/18 at 08:45 Potassium Chloride (Klor-Con) 40 meq 1X ONCE PO Last administered on at 15:05; Start 10/13/18 at 15:00; Stop 10/13/18 at 15:01; Status DC Active Scripts Active Ventolin Hfa Inhaler (Albuterol Sulfate) 18 Gm Hfa.aer.ad 2 Puff INH Q4HRS Vitals/I & O Vital Sign - Last 24 Hours 10/13/18 10/13/18 10/13/18 10/13/18 11:00 15:00 19:00 20:00 Temp 98.5 98.3 97.8 98.5 98.3 97.8 Pulse 88 90 83 Resp 22 20 20 B/P (MAP) 125/83 (97) 110/77 (88) 113/70 (84) Pulse Ox 98 95 97 O2 Delivery Room Air Room Air Room Air Room Air 10/13/18 10/14/18 10/14/18 10/14/18 23:00 03:00 07:05 08:00 Temp 97.6 98.2 98.4 97.6 98.2 98.4 Pulse 80 83 80 Resp 20 20 16 B/P (MAP) 115/78 (90) 102/89 (93) 125/82 (96) Pulse Ox 96 95 98 O2 Delivery Room Air Room Air Room Air Room Air Intake and Output 10/13/18 10/13/18 10/14/18 15:00 23:00 07:00 Intake Total 300 ml 500 ml Output Total 3 ml Balance 297 ml 500 ml ROSEMARY PARADA MD Oct 14, 2018 08:18
[2018-10-14] MEDS: SERTRALINE 25 MG TABLET. PO SCH (08:27)
[2018-10-14] MEDS: SENNOSIDES/DOCUSATE 8.6/50MG TABLET. PO SCH ×2 (08:47→20:40)
[2018-10-14] MEDS: MUPIROCIN 2 % TOPICAL CREAM 15GM TUBE. TP SCH ×3 (08:47→20:40)
[2018-10-14 10:58] VITALS: BP 117/78
[2018-10-14] MEDS: NICOTINE 21MG PATCH. TD SCH (11:53)
[2018-10-14] MEDS ORDERED: cloNIDine HCL 0.1 MG TABLET PO PRN (14:45)
[2018-10-14 14:46] VITALS: BP 136/88
[2018-10-14 14:52] LABS: ALBUMIN 2.8 g/dL (3.4-5.0); ALBUMIN/GLOBULIN RATIO 0.8 (1.0-1.7); CALCIUM 8.1 mg/dL (8.5-10.1); CREATININE 0.8 mg/dL (0.7-1.3); POTASSIUM 4.1 mmol/L (3.5-5.1); TOTAL BILIRUBIN 0.3 mg/dL (0.2-1.0); TOTAL PROTEIN 6.1 g/dL (6.4-8.2)
[2018-10-14] MEDS: LORazepam 1 MG TABLET PO PRN ×2 (14:58→20:41)
--- NOTE | 2018-10-14 15:47 | NUR ---
pt has not been agitated since admission. now has PRN medications available for withdrawal that are effective. 1:1 dc'd. pt moved to 552 and re-educated on the importance of using the call light. pt v/u. bed alarm in place. will monitor.
[2018-10-14 19:00] VITALS: BP 115/77
[2018-10-14 23:00] VITALS: BP 125/87
[2018-10-15 03:00] VITALS: BP 131/81
[2018-10-15 07:00] VITALS: BP 137/82
[2018-10-15] MEDS: SENNOSIDES/DOCUSATE 8.6/50MG TABLET. PO SCH ×2 (10:11→21:22)
[2018-10-15] MEDS: NICOTINE 21MG PATCH. TD SCH (10:11)
[2018-10-15] MEDS: SERTRALINE 25 MG TABLET. PO SCH (10:11)
[2018-10-15] MEDS: LORazepam 1 MG TABLET PO PRN ×2 (10:13→17:19)
[2018-10-15] MEDS: MUPIROCIN 2 % TOPICAL CREAM 15GM TUBE. TP SCH ×3 (10:14→21:22)
[2018-10-15 10:43] VITALS: BP 140/74
--- NOTE | 2018-10-15 11:28 | PDOC ---
PROGRESS NOTES Chief Complaint Chief Complaint Polysubstance abuse Elevated CPK with Rhabdo as a consequence of multiple drug abuse Transaminitis Normocytic anemia Severe dehydrations HEPATITIS C HX per my record review poor prognosis due to polysubstance abuse, needs treatment will consult case mgt Plan: start bicarbonate drip labs in am Nephrology consult, follow cpk follow urinary output Further recommendations based on clinical course DVT prophylaxis: may use SCD if patient allows he is low risk for DVT ambulate with assistance. History of Present Illness History of Present Illness 43-year-old gentleman PMHx polysubstance abuse just released from rehab for IV heroin and IV methamphetamine abuse on 10/05/18 who immediately started using again and went a "3-day patterson" was brought by EMS after being found in the [place] outside someone's house tweaking, apparently. Found in severe rhabdo, CK > 10K with transaminitis and MINERVA, admitted for further care 10/13: States he feels like he was hit by a bus, asking for codeine, but still telling me he used IV heroin and just got out of rehab. I have advised against this Feeling ok this morning, still very weak and sore. Labs still pending, CK and CMP. He wishes to d/w PAT team prior to d/c as he is scared he will relapse to IV heroin and meth if discharged home as rehab discharged him directly to his drug dealer's house. Plan: IV toradol for pain Increase saline infusion. Replace K. If labs improved can shut off IVF Ok to d/c 1-1 for now, he is less agitated. PAT team for drug rehab, likely d/c tomorrow Vitals Vitals Vital Signs Date Time Temp Pulse Resp B/P (MAP) Pulse Ox O2 Delivery O2 Flow Rate FiO2 10/15/18 10:43 97.7 62 18 140/74 (96) 99 Room Air 97.7 Physical Exam General: Alert, Oriented X3, Cooperative, No acute distress Heart: Regular rate, Normal S1, Normal S2 Lungs: Wheezing Abdomen: Normal bowel sounds, Soft, No tenderness, No hepatosplenomegaly Extremities: No clubbing, No cyanosis, No edema, Normal pulses Skin: Other (scratches on entire body) Labs LABS Laboratory Tests Test 10/14/18 14:15 Sodium Level 145 mmol/L (136-145) Potassium Level 4.1 mmol/L (3.5-5.1) Chloride Level 110 mmol/L (98-107) Carbon Dioxide Level 26 mmol/L (21-32) Anion Gap 9 (6-14) Blood Urea Nitrogen 12 mg/dL (8-26) Creatinine 0.8 mg/dL (0.7-1.3) Estimated GFR (Cockcroft-Gault) 106.0 BUN/Creatinine Ratio 15 (6-20) Glucose Level 106 mg/dL (70-99) Calcium Level 8.1 mg/dL (8.5-10.1) Total Bilirubin 0.3 mg/dL (0.2-1.0) Aspartate Amino Transf (AST/SGOT) 70 U/L (15-37) Alanine Aminotransferase (ALT/SGPT) 98 U/L (16-63) Alkaline Phosphatase 55 U/L (46-116) Creatine Kinase 1169 U/L (39-308) Total Protein 6.1 g/dL (6.4-8.2) Albumin 2.8 g/dL (3.4-5.0) Albumin/Globulin Ratio 0.8 (1.0-1.7) Assessment and Plan Assessmemt and Plan Problems Medical Problems: (1) Elevated CK Status: Acute (2) Substance abuse Status: Acute Comment Review of Relevant I have reviewed the following items joe (where applicable) has been applied. Labs Laboratory Tests Test 10/14/18 14:15 Sodium Level 145 mmol/L (136-145) Potassium Level 4.1 mmol/L (3.5-5.1) Chloride Level 110 mmol/L (98-107) Carbon Dioxide Level 26 mmol/L (21-32) Anion Gap 9 (6-14) Blood Urea Nitrogen 12 mg/dL (8-26) Creatinine 0.8 mg/dL (0.7-1.3) Estimated GFR (Cockcroft-Gault) 106.0 BUN/Creatinine Ratio 15 (6-20) Glucose Level 106 mg/dL (70-99) Calcium Level 8.1 mg/dL (8.5-10.1) Total Bilirubin 0.3 mg/dL (0.2-1.0) Aspartate Amino Transf (AST/SGOT) 70 U/L (15-37) Alanine Aminotransferase (ALT/SGPT) 98 U/L (16-63) Alkaline Phosphatase 55 U/L (46-116) Creatine Kinase 1169 U/L (39-308) Total Protein 6.1 g/dL (6.4-8.2) Albumin 2.8 g/dL (3.4-5.0) Albumin/Globulin Ratio 0.8 (1.0-1.7) Laboratory Tests Test 10/14/18 14:15 Sodium Level 145 mmol/L (136-145) Potassium Level 4.1 mmol/L (3.5-5.1) Chloride Level 110 mmol/L (98-107) Carbon Dioxide Level 26 mmol/L (21-32) Anion Gap 9 (6-14) Blood Urea Nitrogen 12 mg/dL (8-26) Creatinine 0.8 mg/dL (0.7-1.3) Estimated GFR (Cockcroft-Gault) 106.0 BUN/Creatinine Ratio 15 (6-20) Glucose Level 106 mg/dL (70-99) Calcium Level 8.1 mg/dL (8.5-10.1) Total Bilirubin 0.3 mg/dL (0.2-1.0) Aspartate Amino Transf (AST/SGOT) 70 U/L (15-37) Alanine Aminotransferase (ALT/SGPT) 98 U/L (16-63) Alkaline Phosphatase 55 U/L (46-116) Creatine Kinase 1169 U/L (39-308) Total Protein 6.1 g/dL (6.4-8.2) Albumin 2.8 g/dL (3.4-5.0) Albumin/Globulin Ratio 0.8 (1.0-1.7) Medications Current Medications Lorazepam (Ativan) 2 mg 1X ONCE IM Last administered on 10/12/18at 10:35; Start 10/12/18 at 09:00; Stop 10/12/18 at 09:01; Status DC Haloperidol Lactate (Haldol Inj) 5 mg 1X ONCE IM Last administered on at 10:35; Start 10/12/18 at 09:00; Stop 10/12/18 at 09:01; Status DC Olanzapine (ZyPREXA ZYDIS) 10 mg 1X ONCE PO Last administered on 10/12/18at 10: 36; Start 10/12/18 at 09:45; Stop 10/12/18 at 09:46; Status DC Lorazepam (Ativan) 2 mg 1X ONCE IM Last administered on 10/12/18at 10:35; Start 10/12/18 at 10:15; Stop 10/12/18 at 10:16; Status DC Sodium Chloride 1,000 ml @ 1,000 mls/hr 1X ONCE IV Last administered on at 15:00; Start 10/12/18 at 15:00; Stop 10/12/18 at 15:59; Status DC Sodium Chloride 1,000 ml @ 125 mls/hr Q8H IV ; Start 10/12/18 at 16:08; Stop at 17:19; Status DC Ringer's Solution 1,000 ml @ 100 mls/hr Q10H IV ; Start 10/12/18 at 16:05; Stop 10/12/18 at 17:19; Status DC Ondansetron HCl (Zofran) 4 mg PRN Q6HRS PRN IV NAUSEA/VOMITING; Start 10/12/18 at 16:15 Prochlorperazine Edisylate (Compazine) 10 mg PRN Q6HRS PRN IV NAUSEA/VOMITING; Start 10/12/18 at 16:15 Zolpidem Tartrate (Ambien) 5 mg PRN QHS PRN PO INSOMNIA, MAY REPEAT IN 1HR; Start 10/12/18 at 16:15 Info (Non-Icu Electrolyte Protocol) 1 ea PRN DAILY PRN MC SEE COMMENTS; Start 10/12/18 at 16:15 Ketorolac Tromethamine (Toradol 30mg Vial) 30 mg PRN Q6HRS PRN IV PAIN Last administered on 10/13/18at 15:05; Start 10/12/18 at 16:15; Stop 10/17/18 at 16:14 Acetaminophen (Tylenol) 650 mg PRN Q6HRS PRN PO Headaches, Temp > 101.5F; Start 10/12/18 at 16:15 Ibuprofen (Motrin) 400 mg PRN Q6HRS PRN PO MILD PAIN; Start 10/12/18 at 16:15 Senna/Docusate Sodium (Senna Plus) 1 tab BID PO Last administered on 10/15/18at 10:11; Start 10/12/18 at 21:00 Lactulose (Lactulose) 20 gm PRN Q12HR PRN PO CONSTIPATION; Start 10/12/18 at 16 :15 Mupirocin (Bactroban) 1 yandy TID TP Last administered on 10/15/18at 10:14; Start 10/12/18 at 21:00 Oxycodone/ Acetaminophen (Percocet 7.5/ 325) 1 tab PRN TID PRN PO PAIN; Start 10/12/18 at 16:15; Stop 10/13/18 at 10:44; Status DC Non-Formulary Medication (Albuterol Sulfate (Ventolin Hfa Inhaler)) 2 puff Q4HRS INH ; Start 10/12/18 at 20:00; Status UNV Non-Formulary Medication (Clindamycin Hcl ) 300 mg QID PO ; Start 10/12/18 at 17 :00; Status UNV Sertraline HCl (Zoloft) 25 mg DAILY PO Last administered on 10/15/18at 10:11; Start 10/13/18 at 09:00 Albuterol Sulfate (Ventolin Neb Soln) 2.5 mg Q4HRS NEB ; Start 10/12/18 at 20:00 ; Stop 10/12/18 at 20:00; Status DC Sodium Chloride 1,000 ml @ 1,000 mls/hr 1X ONCE IV ; Start 10/12/18 at 17:15; Stop 10/12/18 at 18:14; Status DC Sodium Bicarbonate 150 meq/Dextrose 1,150 ml @ 200 mls/hr Q5H45M IV Last administered on 10/13/18at 06:19; Start 10/12/18 at 17:30; Stop 10/13/18 at 16:35 ; Status DC Albuterol Sulfate (Ventolin Neb Soln) 2.5 mg PRN Q4HRS PRN NEB SHORTNESS OF BREATH; Start 10/12/18 at 20:00 Sodium Chloride 1,000 ml @ 100 mls/hr Q10H IV Last administered on 10/14/18at 14:59; Start 10/13/18 at 08:45; Stop 10/14/18 at 15:47; Status DC Potassium Chloride (Klor-Con) 40 meq 1X ONCE PO Last administered on at 15:05; Start 10/13/18 at 15:00; Stop 10/13/18 at 15:01; Status DC Nicotine (Nicoderm Cq 21mg) 1 patch DAILY TD Last administered on 10/15/18at 10: 11; Start 10/14/18 at 12:00 Lorazepam (Ativan) 1 mg PRN Q6HRS PRN PO ANXIETY / AGITATION Last administered on 10/15/18at 10:13; Start 10/14/18 at 14:45 Clonidine HCl (Catapres) 0.1 mg PRN TID PRN PO HIGH BP; Start 10/14/18 at 14:45 Active Scripts Active Ventolin Hfa Inhaler (Albuterol Sulfate) 18 Gm Hfa.aer.ad 2 Puff INH Q4HRS Vitals/I & O Vital Sign - Last 24 Hours 10/14/18 10/14/18 10/14/18 10/14/18 14:46 19:00 19:45 23:00 Temp 98.3 98.4 97.8 98.3 98.4 97.8 Pulse 83 93 87 Resp 20 20 20 B/P (MAP) 136/88 (104) 115/77 (90) 125/87 (100) Pulse Ox 97 98 100 O2 Delivery Room Air Room Air Room Air Room Air 10/15/18 10/15/18 10/15/18 03:00 07:00 10:43 Temp 98.0 97.7 97.7 98.0 97.7 97.7 Pulse 78 60 62 Resp 20 18 18 B/P (MAP) 131/81 (98) 137/82 (100) 140/74 (96) Pulse Ox 97 99 99 O2 Delivery Room Air Room Air Room Air Intake and Output 10/14/18 10/14/18 10/15/18 14:59 22:59 06:59 Intake Total 360 ml 560 ml 420 ml Balance 360 ml 560 ml 420 ml FLO RAE MD Oct 15, 2018 11:28
--- NOTE | 2018-10-15 11:51 | NUR ---
SW following up with referrals regarding homeless, substance abuse, would like smoking cessation info, and referral for outpatient treatment. SW met with pt to assess circumstances surrounding referral. Per pt, he is currently homeless and has been living in abandoned houses. Pt confirms substance use disorder-methamphetamine. Pt reported he uses "anything I can get my hands on but I was recently poisoned from meth." Pt was just in [facility] rehabilitation at [facility] two weeks ago. Pt reported he began using shortly after release due to "living conditions in drug houses." SW discussed the benefits of DENZEL treatment and the consequences of continued use. Pt is agreeable to treatment. SW provided pt with a resources for obtaining DENZ[facility] treatment with [facility] and [facility]. SW explained he will have to contact these agencies himself to set up service. SW further explained [facility] does not arrange housing. SW provided pt with a list of area homeless shelters. Pt is agreeable to go to [facility] or the [facility] [place]. Pt accepted resources and verbalized understanding. Referral for smoking cessation is returned, as respiratory therapy provides this service. [facility] will be available to arrange transportation to a [facility] pt's choice [place]. Pt's RN has been notified.
[2018-10-15 15:01] VITALS: BP 135/79
[2018-10-15] MEDS: CEPHALEXIN 250 MG CAPSULE. PO SCH ×3 (15:37→21:22)
[2018-10-15] MEDS: IV NORMAL SALINE 1000ML BAG 1,000 ML IV SCH (15:37)
[2018-10-15] MEDS: KETOROLAC 30 MG/ML VIAL. IV PRN (15:38)
--- NOTE | 2018-10-15 16:14 | EKG ---
[facility] [address] [place] [address] Test Date: 2018-10-15 Test Time: 15:40:37 Pat Name: MANDA HDZ Department: Room: 2 Gender: M Baker Doughnut: AT : 1975 Requested By: FLO RAE Order Number: [id number] Reading MD: Brandon Montez Measurements Intervals [place] Rate: 86 P: 26 ND: 170 QRS: 28 QRSD: 88 T: 15 QT: 344 QTc: 414 Interpretive Statements SINUS RHYTHM Electronically Signed On 10-23-2018 10:47:46 PEDIATRIC SURGEON by Brandon Montez
[2018-10-15 19:07] VITALS: BP 140/82
[2018-10-15] MEDS: LACTOBACILLUS RHAMNOSUS GG 1 CAPSULE. PO SCH (21:22)
[2018-10-15] MEDS: MORPHINE SULFATE 4 MG/ML VIAL. IV PRN (21:22)
[2018-10-15 22:28] VITALS: BP 128/91
[2018-10-16 03:00] VITALS: BP 153/92
[2018-10-16] MEDS: MORPHINE SULFATE 4 MG/ML VIAL. IV PRN ×2 (03:31→10:02)
[2018-10-16 05:06] LABS: BASO # 0.1 x10^3/uL (0.0-0.2); BASO % 1 % (0-3); EOS # 0.3 x10^3/uL (0.0-0.7); EOS % 5 % (0-3); HEMATOCRIT 38.3 % (39.0-53.0); HEMOGLOBIN 13.2 g/dL (13.0-17.5); LYMPH # 2.3 x10^3/uL (1.0-4.8); LYMPH % 39 % (24-48); MEAN CORPUSCULAR HEMOGLOBIN 31 pg (25-35); MEAN CORPUSCULAR HGB CONC 35 g/dL (31-37); MEAN CORPUSCULAR VOLUME 91 fL (79-100); MONO # 0.5 x10^3/uL (0.0-1.1); MONO % 8 % (0-9); NEUT # 2.7 x10^3uL (1.8-7.7); NEUT % 47 % (31-73); PLATELET COUNT 443 x10^3/uL (140-400); RED BLOOD COUNT 4.22 x10^6/uL (4.30-5.70); RED CELL DISTRIBUTION WIDTH 13.9 % (11.5-14.5); WHITE BLOOD COUNT 5.8 x10^3/uL (4.0-11.0)
[2018-10-16 06:11] LABS: CALCIUM 8.6 mg/dL (8.5-10.1); CREATININE 0.8 mg/dL (0.7-1.3); PHOSPHORUS 3.8 mg/dL (2.6-4.7); POTASSIUM 3.8 mmol/L (3.5-5.1)
[2018-10-16 07:00] VITALS: BP 127/85
[2018-10-16] MEDS: IV NORMAL SALINE 1000ML BAG 1,000 ML IV SCH (08:56)
[2018-10-16] MEDS: CEPHALEXIN 250 MG CAPSULE. PO SCH ×2 (09:04→13:10)
[2018-10-16] MEDS: LACTOBACILLUS RHAMNOSUS GG 1 CAPSULE. PO SCH (09:04)
[2018-10-16] MEDS: SENNOSIDES/DOCUSATE 8.6/50MG TABLET. PO SCH (09:04)
[2018-10-16] MEDS: SERTRALINE 25 MG TABLET. PO SCH (09:04)
[2018-10-16] MEDS: NICOTINE 21MG PATCH. TD SCH (09:05)
[2018-10-16] MEDS: MUPIROCIN 2 % TOPICAL CREAM 15GM TUBE. TP SCH ×2 (09:06→14:30)
[2018-10-16] MEDS: LORazepam 1 MG TABLET PO PRN (10:00)
[2018-10-16 11:00] VITALS: BP 123/83
--- NOTE | 2018-10-16 11:01 | NUR ---
IP: Pt's hx of mrsa was a leg abscess in 2007. Pt has had no further wounds and has had at least 2 negative nasal screens. No need for contact precautions at this time.
[2018-10-16] MEDS ORDERED: SERT25TA4 PO (13:01)
[2018-10-16] MEDS ORDERED: CEPH250C PO (13:01)
--- NOTE | 2018-10-16 13:38 | PDOC3 ---
Discharge Summary Visit Information Date of Admission: Oct 12, 2018 Date of Discharge: Oct 16, 2018 Admitting Diagnosis Comment: Polysubstance abuse Elevated CPK with Rhabdo as a consequence of multiple drug abuse Transaminitis Normocytic anemia Severe dehydrations HEPATITIS C HX Final Diagnosis Problems Medical Problems: (1) Elevated CK Status: Acute (2) Substance abuse Status: Acute Brief Hospital Course Allergies Allergies Coded Allergies Type Severity Reaction Last Updated Verified No Known Drug Allergies 08/19/14 No Vital Signs Vital Signs Date Time Temp Pulse Resp B/P (MAP) Pulse Ox O2 Delivery O2 Flow Rate FiO2 10/16/18 13:10 Room Air 10/16/18 11:00 98.1 76 17 123/83 (96) 98 98.1 Lab Results Laboratory Tests Test 10/14/18 14:15 10/16/18 04:10 10/16/18 04:15 Sodium Level 145 mmol/L (136-145) 142 mmol/L (136-145) Potassium Level 4.1 mmol/L (3.5-5.1) 3.8 mmol/L (3.5-5.1) Chloride Level 110 mmol/L (98-107) 105 mmol/L (98-107) Carbon Dioxide Level 26 mmol/L (21-32) 28 mmol/L (21-32) Anion Gap 9 (6-14) 9 (6-14) Blood Urea Nitrogen 12 mg/dL (8-26) 13 mg/dL (8-26) Creatinine 0.8 mg/dL (0.7-1.3) 0.8 mg/dL (0.7-1.3) Estimated GFR (Cockcroft-Gault) 106.0 106.0 BUN/Creatinine Ratio 15 (6-20) Glucose Level 106 mg/dL (70-99) 86 mg/dL (70-99) Calcium Level 8.1 mg/dL (8.5-10.1) 8.6 mg/dL (8.5-10.1) Total Bilirubin 0.3 mg/dL (0.2-1.0) Aspartate Amino Transf (AST/SGOT) 70 U/L (15-37) Alanine Aminotransferase (ALT/SGPT) 98 U/L (16-63) Alkaline Phosphatase 55 U/L (46-116) Creatine Kinase 1169 U/L (39-308) 298 U/L (39-308) Total Protein 6.1 g/dL (6.4-8.2) Albumin 2.8 g/dL (3.4-5.0) 3.0 g/dL (3.4-5.0) Albumin/Globulin Ratio 0.8 (1.0-1.7) Phosphorus Level 3.8 mg/dL (2.6-4.7) White Blood Count 5.8 x10^3/uL (4.0-11.0) Red Blood Count 4.22 x10^6/uL (4.30-5.70) Hemoglobin 13.2 g/dL (13.0-17.5) Hematocrit 38.3 % (39.0-53.0) Mean Corpuscular Volume 91 fL (79-100) Mean Corpuscular Hemoglobin 31 pg (25-35) Mean Corpuscular Hemoglobin Concent 35 g/dL (31-37) Red Cell Distribution Width 13.9 % (11.5-14.5) Platelet Count 443 x10^3/uL (140-400) Neutrophils (%) (Auto) 47 % (31-73) Lymphocytes (%) (Auto) 39 % (24-48) Monocytes (%) (Auto) 8 % (0-9) Eosinophils (%) (Auto) 5 % (0-3) Basophils (%) (Auto) 1 % (0-3) Neutrophils # (Auto) 2.7 x10^3uL (1.8-7.7) Lymphocytes # (Auto) 2.3 x10^3/uL (1.0-4.8) Monocytes # (Auto) 0.5 x10^3/uL (0.0-1.1) Eosinophils # (Auto) 0.3 x10^3/uL (0.0-0.7) Basophils # (Auto) 0.1 x10^3/uL (0.0-0.2) Laboratory Tests Test 10/16/18 04:10 10/16/18 04:15 Sodium Level 142 mmol/L (136-145) Potassium Level 3.8 mmol/L (3.5-5.1) Chloride Level 105 mmol/L (98-107) Carbon Dioxide Level 28 mmol/L (21-32) Anion Gap 9 (6-14) Blood Urea Nitrogen 13 mg/dL (8-26) Creatinine 0.8 mg/dL (0.7-1.3) Estimated GFR (Cockcroft-Gault) 106.0 Glucose Level 86 mg/dL (70-99) Calcium Level 8.6 mg/dL (8.5-10.1) Phosphorus Level 3.8 mg/dL (2.6-4.7) Creatine Kinase 298 U/L (39-308) Albumin 3.0 g/dL (3.4-5.0) White Blood Count 5.8 x10^3/uL (4.0-11.0) Red Blood Count 4.22 x10^6/uL (4.30-5.70) Hemoglobin 13.2 g/dL (13.0-17.5) Hematocrit 38.3 % (39.0-53.0) Mean Corpuscular Volume 91 fL (79-100) Mean Corpuscular Hemoglobin 31 pg (25-35) Mean Corpuscular Hemoglobin Concent 35 g/dL (31-37) Red Cell Distribution Width 13.9 % (11.5-14.5) Platelet Count 443 x10^3/uL (140-400) Neutrophils (%) (Auto) 47 % (31-73) Lymphocytes (%) (Auto) 39 % (24-48) Monocytes (%) (Auto) 8 % (0-9) Eosinophils (%) (Auto) 5 % (0-3) Basophils (%) (Auto) 1 % (0-3) Neutrophils # (Auto) 2.7 x10^3uL (1.8-7.7) Lymphocytes # (Auto) 2.3 x10^3/uL (1.0-4.8) Monocytes # (Auto) 0.5 x10^3/uL (0.0-1.1) Eosinophils # (Auto) 0.3 x10^3/uL (0.0-0.7) Basophils # (Auto) 0.1 x10^3/uL (0.0-0.2) Brief Hospital Course Mr. Johnson is a 43 old male admitted because of rhabdomyolysis as a consequent of his multiple drug substance abuse. He also had transaminitis and tested positive for hepatitis C. He did test positive UDS. CPK is much better now after 3-4 days of IV hydration is normal. He requests some pain medicine I only gave 15 tablets, he has some left foot injury that old bruise that seems to be healing Consults renal Procedures performed IV hydration dc < 30 mins Discharge Information Condition at Discharge: Improved, Stable Disposition/Orders: D/C to Home Scheduled Albuterol Sulfate (Ventolin Hfa Inhaler) 18 Gm Hfa.aer.ad, 2 PUFF INH Q4HRS for FOR ASTHMA, #1 Ref 0 Prescribed by: RADHA SAWANT D.O. on 05/14/18 0159 Last Action: Converted on 10/12/18 1611 by MD MIGUEL ANGEL DOZIER CHERRIE Y MD Oct 16, 2018 13:38
--- NOTE | 2018-10-16 13:41 | PDOC2 ---
CONSULT Date of Consult Date of Consult DATE: 10/16/18 TIME: 13:36 Reason for Consult Reason for Consult: INCREASED CPK AND RHABDO Referring Physician Referring Physician: FRANCESCO Identification/Chief Complaint Chief Complaint CONFUSED Source Source: Chart review History of Present Illness Reason for Visit: THIS IS A 43 YR OLD WITH CONFUSION, NOTED TO HAVE COCAINE AND METH ON HIS UDS. NOTED TO HAVE INCREASED SOMNOLENCE AND CONFUSION ON INITIAL ADMIT[place] [id number] AND HE WAS ADMITTED FOR HIS ENCEPHALOPATHY AND RHABDOMYOLYSIS. CR WNL Past Medical History Cardiovascular: No pertinent hx GI: No pertinent hx Heme/Onc: No pertinent hx Hepatobiliary: No pertinent hx Psych: No pertinent hx Rheumatologic: No pertinent hx Infectious disease: No pertinent hx ENT: No pertinent hx Renal/: No pertinent hx Endocrine: No pertinent hx Past Surgical History Past Surgical History: No pertinent history Family History Family History: No Significant Social History No Drugs: Cocaine, Crystal meth Lives: Friends Current Problem List Problem List Problems Medical Problems: (1) Elevated CK Status: Acute (2) Substance abuse Status: Acute Current Medications Current Medications Current Medications Lorazepam (Ativan) 2 mg 1X ONCE IM Last administered on 10/12/18at 10:35; Start 10/12/18 at 09:00; Stop 10/12/18 at 09:01; Status DC Haloperidol Lactate (Haldol Inj) 5 mg 1X ONCE IM Last administered on at 10:35; Start 10/12/18 at 09:00; Stop 10/12/18 at 09:01; Status DC Olanzapine (ZyPREXA ZYDIS) 10 mg 1X ONCE PO Last administered on 10/12/18at 10: 36; Start 10/12/18 at 09:45; Stop 10/12/18 at 09:46; Status DC Lorazepam (Ativan) 2 mg 1X ONCE IM Last administered on 10/12/18at 10:35; Start 10/12/18 at 10:15; Stop 10/12/18 at 10:16; Status DC Sodium Chloride 1,000 ml @ 1,000 mls/hr 1X ONCE IV Last administered on at 15:00; Start 10/12/18 at 15:00; Stop 10/12/18 at 15:59; Status DC Sodium Chloride 1,000 ml @ 125 mls/hr Q8H IV ; Start 10/12/18 at 16:08; Stop at 17:19; Status DC Ringer's Solution 1,000 ml @ 100 mls/hr Q10H IV ; Start 10/12/18 at 16:05; Stop 10/12/18 at 17:19; Status DC Ondansetron HCl (Zofran) 4 mg PRN Q6HRS PRN IV NAUSEA/VOMITING 1ST CHOICE; Start 10/12/18 at 16:15 Prochlorperazine Edisylate (Compazine) 10 mg PRN Q6HRS PRN IV NAUSEA/VOMITING 2ND CHOICE; Start 10/12/18 at 16:15 Zolpidem Tartrate (Ambien) 5 mg PRN QHS PRN PO INSOMNIA, MAY REPEAT IN 1HR Last administered on 10/15/18at 22:45; Start 10/12/18 at 16:15 Info (Non-Icu Electrolyte Protocol) 1 ea PRN DAILY PRN MC SEE COMMENTS; Start 10/12/18 at 16:15 Ketorolac Tromethamine (Toradol 30mg Vial) 30 mg PRN Q6HRS PRN IV PAIN Last administered on 10/15/18at 15:38; Start 10/12/18 at 16:15; Stop 10/17/18 at 16:14 Acetaminophen (Tylenol) 650 mg PRN Q6HRS PRN PO Headaches, Temp > 101.5F; Start 10/12/18 at 16:15 Ibuprofen (Motrin) 400 mg PRN Q6HRS PRN PO MILD PAIN; Start 10/12/18 at 16:15; Stop 10/15/18 at 19:00; Status DC Senna/Docusate Sodium (Senna Plus) 1 tab BID PO Last administered on 10/16/18at 09:04; Start 10/12/18 at 21:00 Lactulose (Lactulose) 20 gm PRN Q12HR PRN PO CONSTIPATION; Start 10/12/18 at 16 :15 Mupirocin (Bactroban) 1 yandy TID TP Last administered on 10/16/18at 09:06; Start 10/12/18 at 21:00 Oxycodone/ Acetaminophen (Percocet 7.5/ 325) 1 tab PRN TID PRN PO PAIN; Start 10/12/18 at 16:15; Stop 10/13/18 at 10:44; Status DC Non-Formulary Medication (Albuterol Sulfate (Ventolin Hfa Inhaler)) 2 puff Q4HRS INH ; Start 10/12/18 at 20:00; Status UNV Non-Formulary Medication (Clindamycin Hcl ) 300 mg QID PO ; Start 10/12/18 at 17 :00; Status UNV Sertraline HCl (Zoloft) 25 mg DAILY PO Last administered on 10/16/18at 09:04; Start 10/13/18 at 09:00 Albuterol Sulfate (Ventolin Neb Soln) 2.5 mg Q4HRS NEB ; Start 10/12/18 at 20:00 ; Stop 10/12/18 at 20:00; Status DC Sodium Chloride 1,000 ml @ 1,000 mls/hr 1X ONCE IV ; Start 10/12/18 at 17:15; Stop 10/12/18 at 18:14; Status DC Sodium Bicarbonate 150 meq/Dextrose 1,150 ml @ 200 mls/hr Q5H45M IV Last administered on 10/13/18at 06:19; Start 10/12/18 at 17:30; Stop 10/13/18 at 16:35 ; Status DC Albuterol Sulfate (Ventolin Neb Soln) 2.5 mg PRN Q4HRS PRN NEB SHORTNESS OF BREATH; Start 10/12/18 at 20:00 Sodium Chloride 1,000 ml @ 100 mls/hr Q10H IV Last administered on 10/14/18at 14:59; Start 10/13/18 at 08:45; Stop 10/14/18 at 15:47; Status DC Potassium Chloride (Klor-Con) 40 meq 1X ONCE PO Last administered on at 15:05; Start 10/13/18 at 15:00; Stop 10/13/18 at 15:01; Status DC Nicotine (Nicoderm Cq 21mg) 1 patch DAILY TD Last administered on 10/16/18at 09: 05; Start 10/14/18 at 12:00 Lorazepam (Ativan) 1 mg PRN Q6HRS PRN PO ANXIETY / AGITATION Last administered on 10/16/18at 10:00; Start 10/14/18 at 14:45 Clonidine HCl (Catapres) 0.1 mg PRN TID PRN PO HIGH BP; Start 10/14/18 at 14:45 Cephalexin HCl (Keflex) 500 mg QID PO Last administered on 10/16/18at 13:10; Start 10/15/18 at 13:00 Sodium Chloride 1,000 ml @ 125 mls/hr DAILY IV Last administered on 10/16/18at 08:56; Start 10/15/18 at 14:00 Lactobacillus Rhamnosus (Culturelle) 1 cap BID PO Last administered on at 09:04; Start 10/15/18 at 21:00 Morphine Sulfate (Morphine Sulfate) 2 mg PRN Q2HR PRN IV PAIN Last administered on 10/16/18at 10:02; Start 10/15/18 at 21:00 Active Scripts Active Sertraline Hcl 25 Mg Tablet 25 Mg PO DAILY MDD 1 Cephalexin 250 Mg Capsule 500 Mg PO QID MDD 1 7 Days Ventolin Hfa Inhaler (Albuterol Sulfate) 18 Gm Hfa.aer.ad 2 Puff INH Q4HRS Allergies Allergies: Coded Allergies: No Known Drug Allergies (Unverified , 08/19/14) ROS Review of System UNABLE TO OBTAIN Physical Exam General: Cooperative, No acute distress HEENT: Atraumatic, PERRLA, EOMI, Mucous membr. moist/pink Lungs: Clear to auscultation Heart: Regular rate, Normal S1, Normal S2 Abdomen: Normal bowel sounds, Soft, No tenderness Extremities: No clubbing Skin: No breakdown Neuro: Other (CONFUSED) Psych/Mental Status: Other (CONFUSED) MUSCULOSKELETAL: No deformity, No swelling Vitals VITALS Vital Signs Date Time Temp Pulse Resp B/P (MAP) Pulse Ox O2 Delivery O2 Flow Rate FiO2 10/16/18 13:10 Room Air 10/16/18 11:00 98.1 76 17 123/83 (96) 98 98.1 Labs Labs Laboratory Tests Test 10/14/18 14:15 10/16/18 04:10 10/16/18 04:15 Sodium Level 145 mmol/L (136-145) 142 mmol/L (136-145) Potassium Level 4.1 mmol/L (3.5-5.1) 3.8 mmol/L (3.5-5.1) Chloride Level 110 mmol/L (98-107) 105 mmol/L (98-107) Carbon Dioxide Level 26 mmol/L (21-32) 28 mmol/L (21-32) Anion Gap 9 (6-14) 9 (6-14) Blood Urea Nitrogen 12 mg/dL (8-26) 13 mg/dL (8-26) Creatinine 0.8 mg/dL (0.7-1.3) 0.8 mg/dL (0.7-1.3) Estimated GFR (Cockcroft-Gault) 106.0 106.0 BUN/Creatinine Ratio 15 (6-20) Glucose Level 106 mg/dL (70-99) 86 mg/dL (70-99) Calcium Level 8.1 mg/dL (8.5-10.1) 8.6 mg/dL (8.5-10.1) Total Bilirubin 0.3 mg/dL (0.2-1.0) Aspartate Amino Transf (AST/SGOT) 70 U/L (15-37) Alanine Aminotransferase (ALT/SGPT) 98 U/L (16-63) Alkaline Phosphatase 55 U/L (46-116) Creatine Kinase 1169 U/L (39-308) 298 U/L (39-308) Total Protein 6.1 g/dL (6.4-8.2) Albumin 2.8 g/dL (3.4-5.0) 3.0 g/dL (3.4-5.0) Albumin/Globulin Ratio 0.8 (1.0-1.7) Phosphorus Level 3.8 mg/dL (2.6-4.7) White Blood Count 5.8 x10^3/uL (4.0-11.0) Red Blood Count 4.22 x10^6/uL (4.30-5.70) Hemoglobin 13.2 g/dL (13.0-17.5) Hematocrit 38.3 % (39.0-53.0) Mean Corpuscular Volume 91 fL (79-100) Mean Corpuscular Hemoglobin 31 pg (25-35) Mean Corpuscular Hemoglobin Concent 35 g/dL (31-37) Red Cell Distribution Width 13.9 % (11.5-14.5) Platelet Count 443 x10^3/uL (140-400) Neutrophils (%) (Auto) 47 % (31-73) Lymphocytes (%) (Auto) 39 % (24-48) Monocytes (%) (Auto) 8 % (0-9) Eosinophils (%) (Auto) 5 % (0-3) Basophils (%) (Auto) 1 % (0-3) Neutrophils # (Auto) 2.7 x10^3uL (1.8-7.7) Lymphocytes # (Auto) 2.3 x10^3/uL (1.0-4.8) Monocytes # (Auto) 0.5 x10^3/uL (0.0-1.1) Eosinophils # (Auto) 0.3 x10^3/uL (0.0-0.7) Basophils # (Auto) 0.1 x10^3/uL (0.0-0.2) Laboratory Tests Test 10/16/18 04:10 10/16/18 04:15 Sodium Level 142 mmol/L (136-145) Potassium Level 3.8 mmol/L (3.5-5.1) Chloride Level 105 mmol/L (98-107) Carbon Dioxide Level 28 mmol/L (21-32) Anion Gap 9 (6-14) Blood Urea Nitrogen 13 mg/dL (8-26) Creatinine 0.8 mg/dL (0.7-1.3) Estimated GFR (Cockcroft-Gault) 106.0 Glucose Level 86 mg/dL (70-99) Calcium Level 8.6 mg/dL (8.5-10.1) Phosphorus Level 3.8 mg/dL (2.6-4.7) Creatine Kinase 298 U/L (39-308) Albumin 3.0 g/dL (3.4-5.0) White Blood Count 5.8 x10^3/uL (4.0-11.0) Red Blood Count 4.22 x10^6/uL (4.30-5.70) Hemoglobin 13.2 g/dL (13.0-17.5) Hematocrit 38.3 % (39.0-53.0) Mean Corpuscular Volume 91 fL (79-100) Mean Corpuscular Hemoglobin 31 pg (25-35) Mean Corpuscular Hemoglobin Concent 35 g/dL (31-37) Red Cell Distribution Width 13.9 % (11.5-14.5) Platelet Count 443 x10^3/uL (140-400) Neutrophils (%) (Auto) 47 % (31-73) Lymphocytes (%) (Auto) 39 % (24-48) Monocytes (%) (Auto) 8 % (0-9) Eosinophils (%) (Auto) 5 % (0-3) Basophils (%) (Auto) 1 % (0-3) Neutrophils # (Auto) 2.7 x10^3uL (1.8-7.7) Lymphocytes # (Auto) 2.3 x10^3/uL (1.0-4.8) Monocytes # (Auto) 0.5 x10^3/uL (0.0-1.1) Eosinophils # (Auto) 0.3 x10^3/uL (0.0-0.7) Basophils # (Auto) 0.1 x10^3/uL (0.0-0.2) Assessment/Plan Assessment/Plan IMP SUBSTANCE ABUSE-COCAINE AND METH INCREASE CPK DEHYDRATION PLAN HYDRATION CPK LEVEL DOWN INITIAL UA NEG FOR DIPSTICK HEME WITH CK NOW NEAR NL OK TO D/C WILL SIGN OFF OWEN TOURE MD Oct 16, 2018 13:41
[2018-10-16 15:00] VITALS: BP 137/74
--- NOTE | 2018-10-16 16:50 | NUR ---
Discharge Note: MANDA HDZ J5 [facility] Discharge instructions and discharge home medications reviewed with Patient and a copy given. All questions have been answered and understanding verbalized. The following instructions and handouts were given: Rhabsomyolysis, Creatine Kinase, Drug Abuse, Substance Abuse, [place] Discontinued lines and drains: peripheral IV in RUE removed. Patient discharged to home with self-care via ambulation to private vehicle. Patient showed nurse the handouts and information provided to him by PAT team and social work.
--- NOTE | 2018-10-16 16:53 | NUR ---
Pt. 0215 Procalamine administered late r/t previous bottle still running.
--- NOTE | 2018-10-16 16:56 | NUR ---
PT. Ceftaroline and vancomycin will be administered late r/t off unit for dialysis
[2018-10-17 12:18] LABS: HCV ULTRA QUANT PCR 561000 IU/mL (.)
== END 2018-10-16 15:51 | disposition home or self-care (01) | DRG 917 ==
LOC: ER 08:43 → 5 SOUTH 15:10
PROVIDERS: ADMIT Internal Medicine; ATTEND Internal Medicine
DX: T40.5X1A Poisoning by cocaine, accidental (unintentional), initial encounter (principal); G93.41 Metabolic encephalopathy; N17.9 Acute kidney failure, unspecified; M62.82 Rhabdomyolysis; F19.10 Other psychoactive substance abuse, uncomplicated; R74.8 Abnormal levels of other serum enzymes; R74.0 Nonspecific elevation of levels of transaminase and lactic acid dehydrogenase [LDH]; D64.9 Anemia, unspecified; J45.909 Unspecified asthma, uncomplicated; F15.10 Other stimulant abuse, uncomplicated; E86.0 Dehydration; B19.20 Unspecified viral hepatitis C without hepatic coma; Z79.899 Other long term (current) drug therapy
CPT/HCPCS: 36415; 80053; 80069; 80307; 81001; 82550; 83690; 83735; 85025; 86705; 86709; 86803; 87340; 87521; 93005; 96361; 96372; 96374; 99406; G0480; J1630; J1885; J2060; J2270; J7030; 99291-25

== ENCOUNTER 2018-11-30 10:08 | Emergency (ER) | payer OTHER ==
[~2018-11-30] VITALS: Ht 182.9 cm; Wt 83.5 kg
[~2018-11-30 10:08] MED LIST changes: +CEPH250C PO; +SERT25TA4 PO
[2018-11-30 10:12] VITALS: BP 142/77
--- NOTE | 2018-11-30 10:36 | PHYS DOC ---
Past Medical History Past Medical History: Abscess, MRSA Additional Past Medical Histor: ASTHMA; substance abuse Past Surgical History: No Surgical History Alcohol Use: Occasionally Drug Use: Benzodiazepine Adult General Chief Complaint Chief Complaint: BACK INJURY HPI HPI 43 yo F presenting to the ED with back pain after falling yesterday. He has chronic back problems and chronic back pain that was exacerbated after the fall. He denies abd pain. It is not a ripping tearing or migrating pain. Not suggestive of dissection or AAA. He denies any neuro changes. pain is sharp in the low back and nonradiating. ROS neg for cp,soa, n/v, abd pain. All other review of systems is negative unless otherwise noted in history of present illness. ED course: 43 yo M presenting with low back pain. exam unremarkable. will treat with heat pack and apap. refer to PT. f/u with pcp. The patient has been examined and was not found to have an emergency medical condition. The patient was then discharged home in stable condition to follow up with their primary care physician over the next 1-2 days. They were to return if their symptoms worsened or if they were concerned for any reason. They were also instructed to return to the emergency department if they were unable to get the recommended and appropriate follow-up. [id number] discharge instructions and return precautions were given. Patient's questions were answered to their satisfaction. Patient is comfortable with plan. Review of Systems Review of Systems SEE ABOVE. Current Medications Current Medications Current Medications Medications (Trade) Dose Ordered Sig/Abdiaziz Start Time Stop Time Status Last Admin Dose Admin Acetaminophen (Tylenol) 650 mg 1X ONCE 11/30/18 11:00 11/30/18 11:01 DC 11/30/18 10:40 650 MG Allergies Allergies Allergies Coded Allergies Type Severity Reaction Last Updated Verified No Known Drug Allergies 08/19/14 No Physical Exam Physical Exam SEE ABOVE Constitutional: Well developed, well nourished, no acute distress, non-toxic appearance. HENT: Normocephalic, atraumatic, bilateral external ears normal, oropharynx moist, no oral exudates, nose normal. Eyes: PERRLA, EOMI, conjunctiva normal, no discharge. [] Neck: Normal range of motion, no tenderness, supple, no stridor. Cardiovascular:Heart rate regular rhythm, no murmur Lungs & Thorax: Bilateral breath sounds clear to auscultation Abdomen: Bowel sounds normal, soft, no tenderness, no masses, no pulsatile masses. Skin: Warm, dry, no erythema, no rash. [] Back: Nontender midline. No step-offs lacerations abrasions or ecchymosis. Minimal tenderness on the paraspinal musculature right more than the left. Extremities: No tenderness, no cyanosis, no clubbing, ROM intact, no edema. 5/ 5 strength in the legs with 2+ dtrs at the knees. Neurologic: Alert and oriented X 3, normal motor function, normal sensory function, no focal deficits noted. Psychologic: Affect normal, judgement normal, mood normal. [] Current Patient Data Vital Signs Vital Signs Date Time Temp Pulse Resp B/P (MAP) Pulse Ox O2 Delivery O2 Flow Rate FiO2 11/30/18 10:12 98.2 98 20 142/77 (98) 98 Room Air 98.2 EKG EKG [] Radiology/Procedures Radiology/Procedures [] Course & Med Decision Making Course & Med Decision Making Pertinent Labs and Imaging studies reviewed. (See chart for details) [] Dragon Disclaimer Dragon Disclaimer This electronic medical record was generated, in whole or in part, using a voice recognition dictation system. Departure Departure Impression: Primary Impression: Back pain Disposition: 01 HOME, SELF-CARE Condition: STABLE Referrals: ANN RIBEIRO MD (PCP) Patient Instructions: Back Pain, Adult Additional Instructions: Thank you for allowing us to participate in your care today. Return to the emergency department you have any new or worsening symptoms, or if you are concerned for any reason. Return to emergency department if you have any new or concerning symptoms including but not limited to fever, chills, nausea, vomiting, intractable pain, any new rashes, chest pain, shortness of air , uncontrolled bleeding, difficulty breathing, and/or vision loss. I am referring you to physical therapy for your back pain over the next week. Follow up with your primary care physician within 1-2 days. Call your Primary Doctor tomorrow and inform them of your visit today. If you do not have a primary care provider we are happy to provide you with a list of our primary care providers contact information. This condition should be evaluated by your primary care physician and any recommended consulting services for continued management within 2 days after discharge. If at any time, you are having difficulty getting into your primary care doctor or a specialist, return to the emergency department. Scripts Ibuprofen (IBUPROFEN) 400 Mg Tablet 400 MG PO PRN Q8HRS PRN for PAIN, #10 TAB 0 Refills Prov: DAJUAN RODRÍGUEZ MD 11/30/18 DAJUAN RODRÍGUEZ MD Nov 30, 2018 10:36
[2018-11-30] MEDS ORDERED: IBUP-1027 PO (10:55)
[2018-11-30] MEDS ORDERED: ACETAMINOPHEN 325 MG TABLET. PO ONE (11:00)
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
== END 2018-11-30 11:00 | disposition home or self-care (01) ==
LOC: ER 10:08
DX: G89.29 Other chronic pain (principal); M54.5 Low back pain; J45.909 Unspecified asthma, uncomplicated
CPT/HCPCS: 99282

== ENCOUNTER 2018-12-12 19:41 | Emergency (ER) | payer OTHER ==
[~2018-12-12] VITALS: Ht 190.5 cm; Wt 90.7 kg
[~2018-12-12 19:41] MED LIST changes: +IBUP-1027 PO
[2018-12-12 19:45] VITALS: BP 96/74
--- NOTE | 2018-12-12 20:12 | PHYS DOC ---
Past Medical History Past Medical History: Abscess, MRSA Additional Past Medical Histor: ASTHMA; substance abuse Past Medical History Limited due to patient uncooperative with questioning. Past Surgical History: No Surgical History Past Surgical History Limited due to patient uncooperative with questioning. Smoking: Cigarettes Alcohol Use: Sober Drug Use: Benzodiazepine, Marijuana, Phencyclidine Social History Limited due to patient uncooperative with questioning. Adult General Chief Complaint Chief Complaint: Drug abuse HPI HPI 43 y/o male presents via EMS with report of recent PCP use. Reports was found wandering around [facility] outside. EMS reports able to wake up and subsequently vomited. Patient also noted to be febrile at 102 F. HPI limited as patient uncooperative with questioning. Patient awake and alert but not wanting to answer any questions. Immediately requesting to be discharged. Review of Systems Review of Systems Constitutional: Reports fever GI: Reports vomiting Neuro: Reports altered mental status ROS limited as patient uncooperative with answering questions. Requesting to leave. Allergies Allergies Allergies Coded Allergies Type Severity Reaction Last Updated Verified No Known Drug Allergies 08/19/14 No Physical Exam Physical Exam Constitutional: Well developed, no acute distress, non-toxic appearance, poor hygiene HENT: Normocephalic, atraumatic, oropharynx moist Eyes: PERRL, EOMI, conjunctiva normal, horizontal nystagmus noted Neck: Normal range of motion, no tenderness, supple Cardiovascular: Heart rate regular rhythm, no murmur [] Lungs & Thorax: Bilateral breath sounds clear to auscultation [] Abdomen: Soft, no tenderness Skin: Warm, dry, no erythema, no rash. [] Extremities: No tenderness, ROM intact Neurologic: Alert and oriented X 3, normal motor function, normal sensory function, no focal deficits noted, steady gait Psychologic: Affect flat Current Patient Data Vital Signs Vital Signs Date Time Temp Pulse Resp B/P (MAP) Pulse Ox O2 Delivery O2 Flow Rate FiO2 12/12/18 19:45 98.7 115 22 96/74 (81) 93 Room Air 98.7 EKG EKG @1950 Sinus tachycardia at 111bpm, NO ST elevation, QRS 108ms, QT/QTc 330/452ms Radiology/Procedures Radiology/Procedures [] Course & Med Decision Making Course & Med Decision Making Patient presents via EMS with report of recent PCP abuse. Concern that patient was initially unresponsive, vomited, and was found with fever. Upon arrival to ED patient requesting to leave. Patient seen and evaluated by myself. Patient uncooperative with questioning, however was compliant with physical exam. Patient with steady gait and answering questions. Patient jokingly asking for "a couple hydrocodone" and some "xanax". Patient advised I would be unable to give either of these medications. Reports he is ready to leave. Patient stable for discharge home with outpatient follow-up. Attempted to provide patient with drug rehab pamphlet and discharge papers. Patient left prior to signing Dragon Disclaimer Dragon Disclaimer This electronic medical record was generated, in whole or in part, using a voice recognition dictation system. Departure Departure Impression: Primary Impression: Drug abuse Disposition: 01 HOME, SELF-CARE Condition: STABLE Referrals: ANN RIBEIRO MD (PCP) Patient Instructions: Drug Abuse and Addiction-SportsMed, Drug Abuse, FAQs RADHA SAWANT DO Dec 12, 2018 20:12
--- NOTE | 2018-12-13 06:57 | EKG ---
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 Electronically Signed On 12-19-2018 11:43:22 CDT by Israel Parrish
== END 2018-12-12 19:55 | disposition home or self-care (01) ==
LOC: ER 19:41
DX: F16.10 Hallucinogen abuse, uncomplicated (principal); R11.10 Vomiting, unspecified; R50.9 Fever, unspecified; R41.82 Altered mental status, unspecified; J45.909 Unspecified asthma, uncomplicated; F17.210 Nicotine dependence, cigarettes, uncomplicated
CPT/HCPCS: 93005; 99283

== ENCOUNTER 2018-12-27 21:52 | Emergency (ER) | payer OTHER ==
[~2018-12-27] VITALS: Ht 182.9 cm; Wt 90.7 kg
[2018-12-27 22:31] VITALS: BP 119/78
--- NOTE | 2018-12-27 22:51 | PHYS DOC ---
Past Medical History Past Medical History: Abscess, Bipolar, MRSA Additional Past Medical Histor: ASTHMA; substance abuse; umbilica hernira Past Surgical History: No Surgical History Smoking: Cigarettes Alcohol Use: Sober Drug Use: Benzodiazepine, Cocaine, Heroin, Marijuana, Phencyclidine Adult General Chief Complaint Chief Complaint: ABDOMINAL PAIN HPI HPI Patient is a 43 year old male who presents with abdominal pain for the past 4 days. The pain is a severe sharp pain that is diffuse but most localized to periumbilical region. It is constant with intermittent stabbing pains and worse with food. The pain is not positional. He has not vomited today, however he states that since the onset of this pain he has vomited almost every time he attempts to eat food. He describes food aversion because of severe pain that is associated with any oral intake. Patient has also been belching more frequently since the onset of this pain. His last bowel movement was 2 days ago and states that it was very loose but without hematochezia or melena. He is concerned because he feels his umbilical hernia appears to be enlarging. Patient states that he could no longer tolerate the pain tonight and smoked crack cocaine and subcutaneously injected heroin at around 1900 this evening. Patient has been restless, anxious, and had intermittent chest pain since that time. Review of Systems Review of Systems Constitutional: Denies fever or chills [] Eyes: Denies change in visual acuity, redness, or eye pain [] HENT: Denies nasal congestion or sore throat [] Respiratory: Denies cough or shortness of breath [] Cardiovascular: Reports intermittent chest pain and palpitations [] GI: Reports abdominal pain, nausea, vomiting, diarrhea [] : Reports foul smelling urine without dysuria or hematuria [] Musculoskeletal: Denies back pain or joint pain [] Integument: Reports skin lesion on chest and back [] Neurologic: Denies headache, focal weakness or sensory changes [] Complete review of systems found to be within normal limits, except as documented in this note. Current Medications Current Medications Current Medications Medications (Trade) Dose Ordered Sig/Abdiaziz Start Time Stop Time Status Last Admin Dose Admin Famotidine (Pepcid Vial) 20 mg 1X ONCE 12/27/18 23:00 12/28/18 01:37 DC Famotidine (Pepcid) 20 mg 1X ONCE 12/28/18 02:00 12/28/18 02:01 DC 12/28/18 01:55 20 MG Hyoscyamine (Anaspaz) 0.125 mg 1X ONCE 12/28/18 02:00 12/28/18 02:01 DC 12/28/18 01:54 0.125 MG Info (CONTRAST GIVEN -- Rx MONITORING) 1 each PRN DAILY PRN 12/27/18 23:00 12/29/18 22:59 Cancel Iohexol (Omnipaque 300 Mg/ml) 75 ml 1X ONCE 12/27/18 23:00 12/27/18 23:01 Cancel Ketorolac Tromethamine (Toradol 30mg Vial) 30 mg 1X ONCE 12/28/18 02:00 12/28/18 02:01 DC 12/28/18 01:56 30 MG Multi-Ingredient Mouthwash/Gargle (Gi Cocktail) 20 ml 1X ONCE 12/27/18 23:00 12/27/18 23:01 DC Ondansetron HCl (Zofran) 4 mg 1X ONCE 12/27/18 23:00 12/28/18 01:37 DC Sodium Chloride 1,000 ml @ 1,000 mls/hr 1X ONCE 12/27/18 23:00 12/27/18 23:59 DC Allergies Allergies Allergies Coded Allergies Type Severity Reaction Last Updated Verified No Known Drug Allergies 08/19/14 No Physical Exam Physical Exam Constitutional: Patient restless and kicking his legs throughout exam, appears to be in obvious discomfort and quin over occasionally due to abdominal pain [] HENT: Normocephalic, atraumatic, oral mucosa moist without erythema, poor dentition [] Eyes: Pupils equal at 2 mm, round, minimally reactive to light. EOMI b/l without nystagmus, mild conjunctival injection without drainage [] Neck: Normal range of motion without tenderness. [] Cardiovascular: Tachycardic with regular rhythm, no murmur, gallop or rubs [] Lungs & Thorax: Bilateral breath sounds clear to auscultation [] Abdomen: Soft, tender to palpation diffusely but most severe in RLQ, 3.5 cm nontender reducible periumbilical hernia, ecchymosis present at RLQ where patient states he injected heroin [] Skin: Multiple excoriations on LE b/l [] Back: No tenderness, no CVA tenderness. [] Extremities: Dorsalis pedis +1/4 b/l, extremities cool and dry Neurologic: Alert and oriented, CN II-XII grossly intact b/l. [] Psychologic: Expansive affect, psychomotor agitation. [] Current Patient Data Vital Signs Vital Signs Date Time Temp Pulse Resp B/P (MAP) Pulse Ox O2 Delivery O2 Flow Rate FiO2 12/27/18 22:31 98.2 104 22 119/78 (92) 96 Room Air 98.2 Lab Values Laboratory Tests Test 12/27/18 23:00 12/28/18 01:20 Urine Collection Type Void Urine Color Yellow Urine Clarity Clear Urine pH 5.0 Urine Specific [place] 1.025 Urine Protein Negative mg/dL (NEG-TRACE) Urine Glucose (UA) Negative mg/dL (NEG) Urine Ketones (Stick) Negative mg/dL (NEG) Urine Blood Negative (NEG) Urine Nitrite Negative (NEG) Urine Bilirubin Small (NEG) Urine Urobilinogen Dipstick 0.2 mg/dL (0.2 mg/dL) Urine Leukocyte Esterase Negative (NEG) Urine RBC Rare /HPF (0-2) Urine WBC 1-4 /HPF (0-4) Urine Squamous Epithelial Cells Occ /LPF Urine Bacteria 0 /HPF (0-FEW) Urine Hyaline Casts Many /HPF Urine Mucus Marked /LPF Urine Sperm Present /HPF Urine Opiates Screen Pos (NEG) Urine Methadone Screen Neg (NEG) Urine Barbiturates Neg (NEG) Urine Phencyclidine Screen Neg (NEG) Urine Amphetamine/Methamphetamine Neg (NEG) Urine Benzodiazepines Screen Neg (NEG) Urine Cocaine Screen Pos (NEG) Urine Cannabinoids Screen Neg (NEG) Urine Ethyl Alcohol Neg (NEG) White Blood Count 13.0 x10^3/uL (4.0-11.0) H Red Blood Count 4.88 x10^6/uL (4.30-5.70) Hemoglobin 14.4 g/dL (13.0-17.5) Hematocrit 43.3 % (39.0-53.0) Mean Corpuscular Volume 89 fL (79-100) Mean Corpuscular Hemoglobin 30 pg (25-35) Mean Corpuscular Hemoglobin Concent 33 g/dL (31-37) Red Cell Distribution Width 14.2 % (11.5-14.5) Platelet Count 775 x10^3/uL (140-400) H Neutrophils (%) (Auto) 66 % (31-73) Lymphocytes (%) (Auto) 22 % (24-48) L Monocytes (%) (Auto) 10 % (0-9) H Eosinophils (%) (Auto) 1 % (0-3) Basophils (%) (Auto) 1 % (0-3) Neutrophils # (Auto) 8.5 x10^3uL (1.8-7.7) H Lymphocytes # (Auto) 2.8 x10^3/uL (1.0-4.8) Monocytes # (Auto) 1.3 x10^3/uL (0.0-1.1) H Eosinophils # (Auto) 0.2 x10^3/uL (0.0-0.7) Basophils # (Auto) 0.2 x10^3/uL (0.0-0.2) Platelet Estimate Increased (ADEQUATE) Sodium Level 133 mmol/L (136-145) L Potassium Level 3.7 mmol/L (3.5-5.1) Chloride Level 95 mmol/L (98-107) L Carbon Dioxide Level 27 mmol/L (21-32) Anion Gap 11 (6-14) Blood Urea Nitrogen 24 mg/dL (8-26) Creatinine 1.1 mg/dL (0.7-1.3) Estimated GFR (Cockcroft-Gault) 73.4 BUN/Creatinine Ratio 22 (6-20) H Glucose Level 90 mg/dL (70-99) Lactic Acid Level 0.8 mmol/L (0.4-2.0) Calcium Level 9.9 mg/dL (8.5-10.1) Magnesium Level 2.0 mg/dL (1.8-2.4) Total Bilirubin 0.6 mg/dL (0.2-1.0) Aspartate Amino Transferase (AST) 30 U/L (15-37) Alanine Aminotransferase (ALT) 66 U/L (16-63) H Alkaline Phosphatase 125 U/L (46-116) H Creatine Kinase 47 U/L (39-308) Creatine Kinase MB (Mass) 1.4 ng/mL (0.0-3.6) Creatine Kinase MB Relative Index % (0-4) Troponin I Quantitative < 0.017 ng/mL (0.000-0.055) Total Protein 8.4 g/dL (6.4-8.2) H Albumin 4.0 g/dL (3.4-5.0) Albumin/Globulin Ratio 0.9 (1.0-1.7) L Lipase 155 U/L (73-393) Laboratory Tests 12/28/18 01:20 Laboratory Tests 12/28/18 01:20 EKG EKG @2321: Normal sinus rhythm with rate of 90. Normal axis. Possible mild biphasic P wave in leads aVR, aVL, V1 and V2. No Q waves. No ST segment elevation or depression.[] Radiology/Procedures Radiology/Procedures PROCEDURE: CT ABDOMEN PELVIS WO CONTRAST Examination: CT of the abdomen pelvis without contrast HISTORY: History of abdominal pain COMPARISON: None available. TECHNIQUE: Axial CT images of the abdomen pelvis are performed without contrast. Coronal and sagittal reformats performed Exposure: One or more of the following individualized dose reduction techniques were utilized for this examination: 1. Automated exposure control 2. Adjustment of the mA and/or kV according to patient size 3. Use of iterative reconstruction technique FINDINGS: Mild groundglass airspace opacities identified in the right middle lobe of the lung likely atelectasis or infiltrates. No evidence of free air identified in the abdomen. The evaluation of the solid organs is limited due to lack of IV contrast. The evaluation of bowel is limited due to lack of oral contrast. The visualized noncontrasted liver, spleen, adrenals grossly appears unremarkable. The gallbladder is mildly distended. The stomach is mildly distended. The visualized pancreas grossly appears unremarkable. The small bowel is nondilated. The appendix is normal. Feces and gas noted in the colon. There is mild thickened appearance of the wall of the rectum. No evidence of intrarenal collecting system calculi or hydronephrosis. Small fat and omentum-containing umbilical hernia is identified. L5 spondylolysis with the minimal anterolisthesis of L5 on S1. IMPRESSION: 1. Mild thickened appearance of the wall of the rectum could be due to nondistention or minimal proctitis. 2. Small fat-containing umbilical hernia. 3. Patchy groundglass airspace opacities identified in the right middle lobe of the lung likely atelectasis or infiltrates. Electronically signed by: Francesco Powell MD (12/27/2018 11:48 PM) [facility] Course & Med Decision Making Course & Med Decision Making Pertinent Labs and Imaging studies reviewed. (See chart for details) Patient is a 43 year old male who presents with 4 days of vague abdominal pain in the setting of admitted cocaine and heroin use. CMP, CK-MB, troponin, lipase, CBC and UA unremarkable. Patient afebrile with stable vital signs. UDS positive for cocaine and opiates. Noncontrast CT scan of abdomen and pelvis showed no evidence of acute abdominal process. Patients pain address with GI cocktail, antimuscarinics, and analgesics with interval improvement. Patient now requesting turkey sandwich. Patient stable for discharge with outpatient follow-up with PCP. Discussed findings and plan with patient, who acknowledge understanding and agreement. [] Dragon Disclaimer Dragon Disclaimer This electronic medical record was generated, in whole or in part, using a voice recognition dictation system. Departure Departure Impression: Primary Impression: Abdominal pain Additional Impression: Drug abuse Disposition: HOME, SELF-CARE Condition: STABLE Referrals: ANN RIBEIRO MD (PCP) STEF ALANIS MD Patient Instructions: Abdominal Pain (Nonspecific), Drug Abuse, FAQs Scripts Hyoscyamine Sulfate (LEVSIN-SL) 0.125 Mg Tab.subl 1 TAB SL PRN Q4HRS PRN for PAIN, #20 TAB Prov: RADHA SAWANT DO 12/28/18 Ondansetron (ONDANSETRON ODT) 4 Mg Tab.rapdis 1 TAB PO PRN Q6-8HRS PRN for NAUSEA, #16 TAB Prov: RADHA SAWANT DO 12/28/18 Famotidine (PEPCID) 20 Mg Tablet 20 MG PO BID, #30 TAB Prov: RADHA SAWANT DO 12/28/18 Problem Qualifiers Primary Impression: Abdominal pain Abdominal location: generalized Qualified Codes: R10.84 - Generalized abdominal pain RADHA SAWANT DO December 27, 2018 22:51
[2018-12-27] MEDS ORDERED: CONTRAST GIVEN. MC PRN (23:00)
[2018-12-27] MEDS ORDERED: IOHEXOL 300 MG/ML 100ML VIAL. IV ONE (23:00)
[2018-12-27] MEDS ORDERED: LIDO:MAALOX 1:1 20 ML SINGLE DOSE. PO ONE (23:00)
[2018-12-27] MEDS ORDERED: FAMOTIDINE 20 MG/2 ML VIAL IVP ONE (23:00)
[2018-12-27] MEDS ORDERED: ONDANSETRON PF 4 MG/2 ML VIAL. IV ONE (23:00)
[2018-12-27] MEDS ORDERED: KETOROLAC 30 MG/ML VIAL. IV ONE (23:00)
[2018-12-27] MEDS ORDERED: IV NORMAL SALINE 1000ML BAG 1,000 ML IV ONE (23:00)
[2018-12-27 23:13] LABS: BILIRUBIN,URINE SMALL (NEG); CLARITY,URINE CLEAR; COLOR,URINE YELLOW; NITRITE,URINE NEGATIVE (NEG); PROTEIN,URINE NEGATIVE (NEG-TRACE); UROBILINOGEN,URINE 0.2 mg/dL (0.2 mg/dL)
[2018-12-27 23:20] LABS: AMPHETAMINE/METHAMPHETAMINE NEG (NEG); BARBITURATES NEG (NEG); BENZODIAZEPINES NEG (NEG); CANNABINOIDS NEG (NEG); COCAINE POS (NEG); METHADONE NEG (NEG); OPIATES POS (NEG); PHENCYCLIDINE NEG (NEG)
[2018-12-27 23:22] LABS: RBC,URINE RARE /HPF (0-2)
[2018-12-27 23:23] LABS: BACTERIA,URINE 0 /HPF (0-FEW); HYALINE CASTS, URINE MANY /HPF; SPERM,URINE PRESENT /HPF; SQUAMOUS EPITHELIAL CELL,UR OCC /LPF
--- NOTE | 2018-12-27 23:51 | RAD ---
Examination: CT of the abdomen pelvis without contrast HISTORY: History of abdominal pain COMPARISON: None available. TECHNIQUE: Axial CT images of the abdomen pelvis are performed without contrast. Coronal and sagittal reformats performed Exposure: One or more of the following individualized dose reduction techniques were utilized for this examination: 1. Automated exposure control 2. Adjustment of the mA and/or kV according to patient size 3. Use of iterative reconstruction technique FINDINGS: Mild groundglass airspace opacities identified in the right middle lobe of the lung likely atelectasis or infiltrates. No evidence of free air identified in the abdomen. The evaluation of the solid organs is limited due to lack of IV contrast. The evaluation of bowel is limited due to lack of oral contrast. The visualized noncontrasted liver, spleen, adrenals grossly appears unremarkable. The gallbladder is mildly distended. The stomach is mildly distended. The visualized pancreas grossly appears unremarkable. The small bowel is nondilated. The appendix is normal. Feces and gas noted in the colon. There is mild thickened appearance of the wall of the rectum. No evidence of intrarenal collecting system calculi or hydronephrosis. Small fat and omentum-containing umbilical hernia is identified. L5 spondylolysis with the minimal anterolisthesis of L5 on S1. IMPRESSION: 1. Mild thickened appearance of the wall of the rectum could be due to nondistention or minimal proctitis. 2. Small fat-containing umbilical hernia. 3. Patchy groundglass airspace opacities identified in the right middle lobe of the lung likely atelectasis or infiltrates. Electronically signed by: Francesco Powell MD (12/27/2018 11:48 PM) [facility]
[2018-12-28 01:35] LABS: BASO # 0.2 x10^3/uL (0.0-0.2); BASO % 1 % (0-3); EOS # 0.2 x10^3/uL (0.0-0.7); EOS % 1 % (0-3); HEMATOCRIT 43.3 % (39.0-53.0); HEMOGLOBIN 14.4 g/dL (13.0-17.5); LYMPH # 2.8 x10^3/uL (1.0-4.8); LYMPH % 22 % (24-48); MEAN CORPUSCULAR HEMOGLOBIN 30 pg (25-35); MEAN CORPUSCULAR HGB CONC 33 g/dL (31-37); MEAN CORPUSCULAR VOLUME 89 fL (79-100); MONO # 1.3 x10^3/uL (0.0-1.1); MONO % 10 % (0-9); NEUT # 8.5 x10^3uL (1.8-7.7); NEUT % 66 % (31-73); PLATELET COUNT 775 x10^3/uL (140-400); RED BLOOD COUNT 4.88 x10^6/uL (4.30-5.70); RED CELL DISTRIBUTION WIDTH 14.2 % (11.5-14.5)
[2018-12-28 01:42] LABS: CALCIUM 9.9 mg/dL (8.5-10.1); CREATININE 1.1 mg/dL (0.7-1.3); GFR 73.4; POTASSIUM 3.7 mmol/L (3.5-5.1)
[2018-12-28] MEDS ORDERED: HYOS0.1265 SL (01:42)
[2018-12-28] MEDS ORDERED: ONDA4TAB12 PO (01:42)
[2018-12-28] MEDS ORDERED: FAMO-63 PO (01:42)
[2018-12-28 01:48] LABS: ALBUMIN/GLOBULIN RATIO 0.9 (1.0-1.7); TOTAL BILIRUBIN 0.6 mg/dL (0.2-1.0); TOTAL PROTEIN 8.4 g/dL (6.4-8.2)
[2018-12-28 01:56] LABS: CREATINE KINASE 47 U/L (39-308)
[2018-12-28] MEDS ORDERED: FAMOTIDINE 20 MG TABLET. PO ONE (02:00)
[2018-12-28] MEDS ORDERED: KETOROLAC 30 MG/ML VIAL. IM ONE (02:00)
[2018-12-28] MEDS ORDERED: HYOSCYAMINE 0.125 MG TAB.RAPDIS PO ONE (02:00)
[2018-12-28 02:03] LABS: PLT ESTIMATE INCREASED (ADEQUATE)
--- NOTE | 2018-12-28 07:01 | EKG ---
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
== END 2018-12-28 02:20 | disposition home or self-care (01) ==
LOC: ER 21:52
DX: S30.1XXA Contusion of abdominal wall, initial encounter (principal); S80.812A Abrasion, left lower leg, initial encounter; S80.811A Abrasion, right lower leg, initial encounter; R45.1 Restlessness and agitation; R11.2 Nausea with vomiting, unspecified; F14.10 Cocaine abuse, uncomplicated; F11.10 Opioid abuse, uncomplicated; F15.10 Other stimulant abuse, uncomplicated; F12.10 Cannabis abuse, uncomplicated; F17.210 Nicotine dependence, cigarettes, uncomplicated; F31.9 Bipolar disorder, unspecified; J45.909 Unspecified asthma, uncomplicated; Z98.890 Other specified postprocedural states; Z86.14 Personal history of Methicillin resistant Staphylococcus aureus infection; X58.XXXA Exposure to other specified factors, initial encounter; Y93.89 Activity, other specified; Y92.89 Other specified places as the place of occurrence of the external cause; Y99.8 Other external cause status
CPT/HCPCS: 36415; 74176; 80053; 80307; 81001; 82553; 83605; 83690; 83735; 84484; 85025; 93005; 96372; 99285; J1885

== ENCOUNTER 2018-12-30 02:14 | Emergency (ER) | payer OTHER ==
[~2018-12-30] VITALS: Ht 182.9 cm; Wt 90.7 kg
[~2018-12-30 02:14] MED LIST changes: +FAMO-63 PO; +HYOS0.1265 SL; +ONDA4TAB12 PO
[2018-12-30 02:32] VITALS: BP 122/71
== END 2018-12-30 02:56 | disposition left against medical advice (07) ==
LOC: ER 02:14
DX: R10.9 Unspecified abdominal pain (principal); Z53.21 Procedure and treatment not carried out due to patient leaving prior to being seen by health care provider

== ENCOUNTER → 2020-04-16 | Outpatient (CLI) | payer OTHER ==
[2020-01-10 11:00] VITALS: BP 140/92
[~2020-04-16] MED LIST changes: +LINE600T12 PO
== END ==
LOC: SURGPAT 13:48
PROVIDERS: ATTEND Specialist
DX: Z01.812 Encounter for preprocedural laboratory examination (principal); Z20.828 Contact with and (suspected) exposure to other viral communicable diseases
CPT/HCPCS: U0003-CS

== ENCOUNTER 2020-04-20 06:59 | Day surgery (SDC) | payer OTHER ==
[~2020-04-20] VITALS: Ht 182.9 cm; Wt 83.0 kg
[~2020-04-20 06:59] MED LIST changes: +ceFAZolin SODIUM IV Push 1 GM VIAL. IVP ONE
[2020-04-20] MEDS ORDERED: fentaNYL PF VIAL 100 MCG/2 ML VIAL IV PRN ×2 (07:00)
[2020-04-20] MEDS ORDERED: HYDROmorphone 2 MG/ML VIAL IV PRN (07:00)
[2020-04-20] MEDS ORDERED: LIDOCAINE 1% PF 2 ML VIAL. ID PRN (07:00)
[2020-04-20] MEDS ORDERED: ONDANSETRON PF 4 MG/2 ML VIAL. IV PRN (07:00)
[2020-04-20] MEDS ORDERED: BUPIVACAINE-EPI 0.5%-1:200000 MPF 30 ML VIAL. ONE (07:24)
[2020-04-20] MEDS: IV RINGERS,LACTATED 1000ML 1,000 ML IV SCH ×2 (07:44→11:39)
[2020-04-20 07:55] LABS: BARBITURATES NEG (NEG); BENZODIAZEPINES NEG (NEG); CANNABINOIDS NEG (NEG); COCAINE NEG (NEG); METHADONE NEG (NEG); OPIATES NEG (NEG); PHENCYCLIDINE NEG (NEG)
[2020-04-20 07:59] LABS: AMPHETAMINE/METHAMPHETAMINE NEG (NEG)
[2020-04-20 08:00] LABS: CALCIUM 8.9 mg/dL (8.5-10.1); GFR 81.6; POTASSIUM 3.9 mmol/L (3.5-5.1)
[2020-04-20 08:04] LABS: BASO # 0.1 x10^3/uL (0.0-0.2); BASO % 1 % (0-3); EOS # 0.2 x10^3/uL (0.0-0.7); EOS % 3 % (0-3); HEMATOCRIT 42.4 % (39.0-53.0); HEMOGLOBIN 14.6 g/dL (13.0-17.5); LYMPH # 2.6 x10^3/uL (1.0-4.8); LYMPH % 38 % (24-48); MEAN CORPUSCULAR HEMOGLOBIN 30 pg (25-35); MEAN CORPUSCULAR HGB CONC 35 g/dL (31-37); MEAN CORPUSCULAR VOLUME 88 fL (79-100); MONO # 0.7 x10^3/uL (0.0-1.1); MONO % 10 % (0-9); NEUT # 3.3 x10^3/uL (1.8-7.7); NEUT % 48 % (31-73); PLATELET COUNT 533 x10^3/uL (140-400); RED BLOOD COUNT 4.83 x10^6/uL (4.30-5.70); RED CELL DISTRIBUTION WIDTH 14.3 % (11.5-14.5)
[2020-04-20 08:06] LABS: ALBUMIN 3.7 g/dL (3.4-5.0); ALBUMIN/GLOBULIN RATIO 0.9 (1.0-1.7); TOTAL BILIRUBIN 0.2 mg/dL (0.2-1.0); TOTAL PROTEIN 7.7 g/dL (6.4-8.2)
[2020-04-20 08:13] LABS: PROTHROMBIN TIME PATIENT 12.3 SEC (11.7-14.0)
[2020-04-20] MEDS ORDERED: PROPOFOL 10 MG/ML (20ML) VIAL. IV ONE (08:20)
[2020-04-20] MEDS ORDERED: ROCURONIUM 50 MG/5 ML VIAL. ONE (08:20)
[2020-04-20] MEDS ORDERED: LIDOCAINE 2% PF 5 ML VIAL. ONE (08:20)
[2020-04-20] MEDS ORDERED: fentaNYL PF VIAL 100 MCG/2 ML VIAL ONE ×2 (08:20→10:13)
[2020-04-20] MEDS ORDERED: SUCCINYLCHOLINE 200 MG/10 ML VIAL. ONE (08:20)
--- NOTE | 2020-04-20 09:34 | PDOC ---
SURGICAL PROGRESS NOTE DATE: 04/20/20 TIME: 09:32 Op Note: Surgeon........................................Reed Pre op diag....................................Incarc umbilical hernia Post op diag..................................Incarcerated ventral hernia Anesthesia....................................General Procedure.....................................Repair incarc umbilical hernia with mesh Drains..........................................none Blood loss....................................10cc Fluids..........................................see anesthesia sheet. Condition.....................................satisfactory Vital Signs Vital Signs Date Time Temp Pulse Resp B/P (MAP) Pulse Ox O2 Delivery O2 Flow Rate FiO2 04/20/20 07:27 97.5 87 20 116/75 96 Room Air 97.5 Labs Laboratory Tests Test 04/20/20 07:05 04/20/20 07:32 Urine Opiates Screen Neg (NEG) Urine Methadone Screen Neg (NEG) Urine Barbiturates Neg (NEG) Urine Phencyclidine Screen Neg (NEG) Urine Amphetamine/Methamphetamine Neg (NEG) Urine Benzodiazepines Screen Neg (NEG) Urine Cocaine Screen Neg (NEG) Urine Cannabinoids Screen Neg (NEG) Urine Ethyl Alcohol Neg (NEG) White Blood Count 7.0 x10^3/uL (4.0-11.0) Red Blood Count 4.83 x10^6/uL (4.30-5.70) Hemoglobin 14.6 g/dL (13.0-17.5) Hematocrit 42.4 % (39.0-53.0) Mean Corpuscular Volume 88 fL (79-100) Mean Corpuscular Hemoglobin 30 pg (25-35) Mean Corpuscular Hemoglobin Concent 35 g/dL (31-37) Red Cell Distribution Width 14.3 % (11.5-14.5) Platelet Count 533 x10^3/uL (140-400) Neutrophils (%) (Auto) 48 % (31-73) Lymphocytes (%) (Auto) 38 % (24-48) Monocytes (%) (Auto) 10 % (0-9) Eosinophils (%) (Auto) 3 % (0-3) Basophils (%) (Auto) 1 % (0-3) Neutrophils # (Auto) 3.3 x10^3/uL (1.8-7.7) Lymphocytes # (Auto) 2.6 x10^3/uL (1.0-4.8) Monocytes # (Auto) 0.7 x10^3/uL (0.0-1.1) Eosinophils # (Auto) 0.2 x10^3/uL (0.0-0.7) Basophils # (Auto) 0.1 x10^3/uL (0.0-0.2) Prothrombin Time 12.3 SEC (11.7-14.0) Prothromb Time International Ratio 1.0 (0.8-1.1) Activated Partial Thromboplast Time 31 SEC (24-38) Sodium Level 137 mmol/L (136-145) Potassium Level 3.9 mmol/L (3.5-5.1) Chloride Level 102 mmol/L (98-107) Carbon Dioxide Level 26 mmol/L (21-32) Anion Gap 9 (6-14) Blood Urea Nitrogen 14 mg/dL (8-26) Creatinine 1.0 mg/dL (0.7-1.3) Estimated GFR (Cockcroft-Gault) 81.6 BUN/Creatinine Ratio 14 (6-20) Glucose Level 94 mg/dL (70-99) Calcium Level 8.9 mg/dL (8.5-10.1) Total Bilirubin 0.2 mg/dL (0.2-1.0) Aspartate Amino Transf (AST/SGOT) 23 U/L (15-37) Alanine Aminotransferase (ALT/SGPT) 38 U/L (16-63) Alkaline Phosphatase 120 U/L (46-116) Total Protein 7.7 g/dL (6.4-8.2) Albumin 3.7 g/dL (3.4-5.0) Albumin/Globulin Ratio 0.9 (1.0-1.7) Laboratory Tests Test 04/20/20 07:05 04/20/20 07:32 Urine Opiates Screen Neg (NEG) Urine Methadone Screen Neg (NEG) Urine Barbiturates Neg (NEG) Urine Phencyclidine Screen Neg (NEG) Urine Amphetamine/Methamphetamine Neg (NEG) Urine Benzodiazepines Screen Neg (NEG) Urine Cocaine Screen Neg (NEG) Urine Cannabinoids Screen Neg (NEG) Urine Ethyl Alcohol Neg (NEG) White Blood Count 7.0 x10^3/uL (4.0-11.0) Red Blood Count 4.83 x10^6/uL (4.30-5.70) Hemoglobin 14.6 g/dL (13.0-17.5) Hematocrit 42.4 % (39.0-53.0) Mean Corpuscular Volume 88 fL (79-100) Mean Corpuscular Hemoglobin 30 pg (25-35) Mean Corpuscular Hemoglobin Concent 35 g/dL (31-37) Red Cell Distribution Width 14.3 % (11.5-14.5) Platelet Count 533 x10^3/uL (140-400) Neutrophils (%) (Auto) 48 % (31-73) Lymphocytes (%) (Auto) 38 % (24-48) Monocytes (%) (Auto) 10 % (0-9) Eosinophils (%) (Auto) 3 % (0-3) Basophils (%) (Auto) 1 % (0-3) Neutrophils # (Auto) 3.3 x10^3/uL (1.8-7.7) Lymphocytes # (Auto) 2.6 x10^3/uL (1.0-4.8) Monocytes # (Auto) 0.7 x10^3/uL (0.0-1.1) Eosinophils # (Auto) 0.2 x10^3/uL (0.0-0.7) Basophils # (Auto) 0.1 x10^3/uL (0.0-0.2) Prothrombin Time 12.3 SEC (11.7-14.0) Prothromb Time International Ratio 1.0 (0.8-1.1) Activated Partial Thromboplast Time 31 SEC (24-38) Sodium Level 137 mmol/L (136-145) Potassium Level 3.9 mmol/L (3.5-5.1) Chloride Level 102 mmol/L (98-107) Carbon Dioxide Level 26 mmol/L (21-32) Anion Gap 9 (6-14) Blood Urea Nitrogen 14 mg/dL (8-26) Creatinine 1.0 mg/dL (0.7-1.3) Estimated GFR (Cockcroft-Gault) 81.6 BUN/Creatinine Ratio 14 (6-20) Glucose Level 94 mg/dL (70-99) Calcium Level 8.9 mg/dL (8.5-10.1) Total Bilirubin 0.2 mg/dL (0.2-1.0) Aspartate Amino Transf (AST/SGOT) 23 U/L (15-37) Alanine Aminotransferase (ALT/SGPT) 38 U/L (16-63) Alkaline Phosphatase 120 U/L (46-116) Total Protein 7.7 g/dL (6.4-8.2) Albumin 3.7 g/dL (3.4-5.0) Albumin/Globulin Ratio 0.9 (1.0-1.7) Justicifation of Admission Dx: Justifications for Admission: Justification of Admission Dx: Yes TIFFANY SMITH MD Apr 20, 2020 09:34
[2020-04-20] MEDS ORDERED: DESFLURANE 61 TO 120 MINUTES IH ONE (09:41)
[2020-04-20] MEDS ORDERED: DEXAMETHASONE SOD PHOS 4 MG/ML VIAL ONE (09:41)
[2020-04-20] MEDS ORDERED: ONDANSETRON PF 4 MG/2 ML VIAL. ONE (09:50)
[2020-04-20 10:07] LABS: PLT ESTIMATE INCREASED (ADEQUATE)
[2020-04-20] MEDS ORDERED: GLYCOPYRROLATE 1 MG/5 ML VIAL. ONE (10:13)
[2020-04-20] MEDS ORDERED: NEOSTIGMINE METHYLSULFATE 5 MG/5 ML SYRINGE. ONE (10:13)
[2020-04-20] MEDS ORDERED: KETOROLAC 30 MG/ML VIAL. ONE (11:00)
[2020-04-20] MEDS ORDERED: PROCHLORPERAZINE 10 MG/2 ML VIAL. ONE (11:21)
[2020-04-20] MEDS ORDERED: MORPHINE SULFATE 2 MG/ML VIAL. ONE (11:22)
--- NOTE | 2020-04-20 11:23 | DISCH ---
DISCHARGE INSTRUCTIONS Condition on Discharge Condition on Discharge: Stable Activity After Discharge Activity Instructions for Disc: Activity as tolerated, Avoid exertion Lifting Instructions after Dis: No heavy lifting, No pulling or pushing Exercise Instruction after Dis: Progress as tolerated Driving Instructions after Dis: Do not drive Weight Bearing Status after Di: As tolerated Diet after Discharge Diet after Discharge: Clear Liquid, Regular Diet Texture: Regular Liquid Texture: Thin Liquid Swallowing Supervision: None needed Wound Incision Care Wound/Incision Care: Other, see below Other wound/incision instructi: leave dressing on and may shower after 48 hours...do not reove dressing Checks after Discharge Checks after discharge: Check blood press - daily Contacting the DRJonh after DC Call your doctor for: If your condition worsens Follow-Up Follow up with: Leonardo Smith in 2 weeks Treatment/Equipment after DC Adaptive Equipment Issued: None LEONARDO SMITH MD Apr 20, 2020 11:23
[2020-04-20] MEDS: PROCHLORPERAZINE 10 MG/2 ML VIAL. IV PRN ×2 (11:38→12:02)
[2020-04-20] MEDS: MORPHINE SULFATE 2 MG/ML VIAL. IV PRN ×2 (11:39→12:03)
[2020-04-20] MEDS ORDERED: HYDROcodone/APAP 5/325MG 1 TAB TABLET PO ONE (11:45)
[2020-04-20] MEDS ORDERED: HYDR-2761 PO (11:57)
[2020-04-20 12:35] VITALS: BP 120/76
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
--- NOTE | 2020-04-22 01:18 | OP ---
DATE OF SURGERY: 04/20/2020 SURGEON: Leonardo Smith MD PREOPERATIVE DIAGNOSIS: Incarcerated umbilical hernia. POSTOPERATIVE DIAGNOSIS: Incarcerated ventral hernia. ANESTHESIA: General. PROCEDURE: Repair of incarcerated ventral hernia with mesh. TECHNIQUE: Under general anesthesia, the patient was properly prepped and draped in the routine fashion. The superior portion of the umbilicus was bolused out and there was an obvious hernia there. We thought it was the umbilicus; however, the inferior portion went down to the fascia. We therefore made a transverse incision, throughout following the skin lines superior to the umbilicus and carried this down through the skin with a 15 blade. Once we got there, we identified the sac and using Metzenbaum scissors, cautery and finger dissection, dissected the sac out. The sac was about 5-6 cm in diameter and once he was relaxed, I could feel the fascial defect. We removed this and went around the sac and to our surprise, we could go inferiorly. We did not have to take the sac off the umbilicus off the skin as it was not an umbilical hernia, but in fact a ventral hernia. The fascial defect being about 3 cm or more in diameter. We then were able to free up the sac, dividing some of the adhesions and reduced it. During the procedure, we did not enter the peritoneal cavity as this was in the preperitoneal space. We therefore used finger dissection and cautery to free up on the underside of the anterior abdominal wall in the area where we could put the patch. We thought it best to put a patch there, such a young person, very active and we thought this would give him the best chance of not having the hernia recurred. We did use the Ventralex patch, which was I think 6-8 cm in diameter and then placed it into the area. We had to free up a lot of the area, so that this would lay flat against the anterior abdominal wall and . The tag was pulled up and we then placed four #1 sutures in the fascia about a centimeter back. We then cut the tag and we did incorporate the mesh anterior surface in the sutures so that it would hold it against the anterior abdominal wall, knowing that this was not in the peritoneal cavity, however. The sutures were then tied and the hernia was basically repaired. We then inspected the area. There was no further hernia. All was well and the procedure was basically terminated. We irrigated the subcutaneous with saline and then approximated the subcutaneous tissues using interrupted 4-0 Vicryl. We did not have to suture the umbilicus down to the area as it was not an umbilical hernia and the umbilicus was in its normal position with no hernia formation. We then closed the skin using the subcuticular 5-0 Vicryl and the procedure was terminated. The blood loss was about 5-6 cm. Fluids given can be obtained from the anesthesia sheet. No drains were used and the condition of the patient was satisfactory as he has returned to the recovery room. LEONARDO SMITH MD DR: DANA/marissa JOB#: [id number] / [id number]
== END 2020-04-20 12:50 | disposition home or self-care (01) ==
LOC: SURG 06:59
PROVIDERS: ATTEND Specialist
DX: K42.0 Umbilical hernia with obstruction, without gangrene (principal); K43.6 Other and unspecified ventral hernia with obstruction, without gangrene; Z79.899 Other long term (current) drug therapy; Z79.01 Long term (current) use of anticoagulants
CPT/HCPCS: 36415; 49561; 49568; 80053; 80307; 85025; 85610; 85730; A7015; C1781; J0330; J0690; J0780; J1100; J1885; J2270; J2405; J2704; J2710; J3010; J3490; J7120